=== PATIENT | female | born 1940 ===

== ENCOUNTER 2018-03-30 10:06 | Inpatient (IN) | payer MEDICARE, OTHER ==
[2018-03-30 10:07] VITALS: BMI 39.3
[2018-03-30] MEDS ORDERED: Dextrose 50% SYRINGE Inj (50 ml) IVP ONE (10:39)
--- NOTE | 2018-03-30 10:51 | ED PDOC ---
HPI: Altered Mental Status Time Seen by Provider: 03/30/18 10:15 Chief Complaint (Nursing): Altered Mental Status History Per: Family (This 77 yo female is brought to the ER after she was found by her homemaker confused at home. Per EMS she was on the floor rolling back and forth, giddy, when they arrived. Daughter at bedside later reports that she is usually self sufficient. She last saw her yesterday aroudn midday after she had lunch at the [facility]. ) Past Medical History Reviewed: Historical Data, Nursing Documentation, Vital Signs Vital Signs: Last Vital Signs Temp 97.1 F L 03/30/18 10:12 Pulse 81 03/30/18 10:12 Resp 21 03/30/18 10:12 BP 141/48 L 03/30/18 10:12 Pulse Ox 96 03/30/18 10:12 - Medical History PMH: Anxiety, Arthritis, Asthma (Inhaler), Depression, Diabetes, HTN, Hypercholesterolemia - Surgical History Surgical History: Denies: Pacemaker - Family History Family History: States: No Known Family Hx - Living Arrangements Living Arrangements: Alone - Home Medications Home Medications: Ambulatory Orders Medication Instructions Recorded ALPRAZolam [Xanax] 0.25 mg PO BID PRN 03/30/18 Amitriptyline HCl 25 mg PO DAILY 03/30/18 Atorvastatin [Lipitor] 40 mg PO HS 03/30/18 Donepezil HCl [Aricept] 10 mg PO DAILY 03/30/18 Fenofibrate 200 mg PO DAILY 03/30/18 Furosemide [Lasix] 20 mg PO DAILY 03/30/18 Glimepiride [amaRYL] 4 mg PO BID 03/30/18 Metoprolol Succinate [Toprol XL] 25 mg PO DAILY 03/30/18 Pioglitazone [Actos] 30 mg PO DAILY 03/30/18 Risperidone [Risperdal] 0.25 mg PO HS 03/30/18 Valsartan/Hydrochlorothiazide 1 tab PO DAILY 03/30/18 [Valsartan-Hctz 320-25 mg Tab] metFORMIN [glucOPHAGE] 1,000 mg PO BID 03/30/18 - Allergies Allergies/Adverse Reactions: Allergies Allergy/AdvReac Type Severity Reaction Status Date / Time cortisone AdvReac ill feeling Verified 05/04/17 10:03 Review of Systems Review Of Systems: ROS cannot be obtained secondary to pt's inabilty to answer questions. Physical Exam - Reviewed Nursing Documentation Reviewed: Yes Vital Signs Reviewed: Yes - Physical Exam Appears: Positive for: Well, Non-toxic, No Acute Distress Head Exam: Positive for: ATRAUMATIC, NORMAL INSPECTION, NORMOCEPHALIC Skin: Positive for: Normal Color, Warm, DRY Eye Exam: Positive for: Normal appearance, PERRL ENT: Positive for: Normal ENT Inspection Neck: Positive for: Normal, Painless ROM Cardiovascular/Chest: Positive for: Regular Rate, Rhythm Respiratory: Positive for: CNT, Normal Breath Sounds Gastrointestinal/Abdominal: Positive for: Normal Exam, Soft Back: Positive for: Normal Inspection Extremity: Positive for: Normal ROM Neurologic/Psych: Negative for: Oriented (patient is slow to respond but does not appear to have focal neurologic deficit.), Facial Droop - Laboratory Results Result Diagrams: 03/30/18 10:50 03/30/18 10:50 - ECG O2 Sat by Pulse Oximetry: 96 - Radiology X-Ray: Viewed By Mn X-Ray Interpretation: No Acute Disease - Progress Re-evaluation Time: 11:30 Condition: Improved - Critical Care Total Time (In Min): 30 Medical Decision Making Medical Decision Making: Patient because alert and oriented x 3 after D50 was given for accucheck of 20. 12:05p - patient continues to be alert and without distress. Labs reviewed. Case discussed with Dr. Porter. Will admit to obs-tele to monitor for recurrence , given that there is no clear reason why she had the episode. As per Dr. Porter , she has not had such episodes in the past. Disposition - Clinical Impression Clinical Impression: Hypoglycemia due to type 2 diabetes mellitus, Altered mental status - Patient ED Disposition Is Patient to be Admitted: Yes Doctor Will See Patient In The: Hospital - Disposition Disposition: Transfer of Care Disposition Time: 12:29 Condition: IMPROVED Forms: [employer] (Telugu) - Pt Status Changed To: Hospital Disposition Of: Observation - POA Present On Arrival: None
[2018-03-30 11:03] LABS: BASO % 0.3 % (0.0-2.0); EOS % 0.3 % (0.0-4.0); HEMOGLOBIN 9.7 g/dL (12.0-16.0); LYMPH # 1.5 K/uL (1.0-4.3); LYMPH % 21.2 % (20.0-40.0); MEAN CELL VOLUME 86.6 fl (81.0-99.0); MEAN CORPUSCULAR HEMOGLOBIN 27.7 pg (27.0-31.0); MEAN CORPUSCULAR HGB CONC 31.9 g/dL (33.0-37.0); MEAN PLATELET VOLUME 10.6 fl (7.2-11.7); MONO # 0.6 K/uL (0.0-0.8); MONO % 8.4 % (0.0-10.0); NEUT # 4.8 K/uL (1.8-7.0); NEUT % 69.8 % (50.0-75.0); NRBC % 0.2 % (0.0-0.0); RBC 3.49 Mil/uL (3.80-5.20); RED CELL DISTRIBUTION WIDTH 13.9 % (11.5-14.5); WHITE BLOOD COUNT 6.8 K/uL (4.8-10.8)
[2018-03-30 11:11] LABS: ALB/GLOB RATIO 1.1 (1.0-2.1); ALBUMIN 4.2 g/dL (3.5-5.0); ALT/SGPT 33 U/L (9-52); AST/SGOT 47 U/L (14-36); BLOOD UREA NITROGEN 32 mg/dl (7-17); CALCIUM 9.2 mg/dL (8.4-10.2); GFR AFRICAN-AMERICAN 44; GFR NON-AFRICAN AMERICAN 37; LIPASE 125 U/L (23-300)
--- NOTE | 2018-03-30 11:14 | RAD ---
PROCEDURE: CHEST RADIOGRAPH, 1 VIEW HISTORY: altered mental status COMPARISON: Chest radiograph dated 08/11/2008 FINDINGS: LUNGS: Clear. PLEURA: No pneumothorax or pleural fluid seen. CARDIOVASCULAR: No sclerotic aortic calcifications. Cardiomediastinal silhouette stably enlarged. OSSEOUS STRUCTURES: Unchanged. VISUALIZED UPPER ABDOMEN: Normal. OTHER FINDINGS: None. IMPRESSION: No active disease.
[2018-03-30] MEDS: Dextrose 5%/0.45% NS 1,000 ML IV SCH ×2 (11:16→21:26)
[2018-03-30 11:20] LABS: VENOUS BLOOD GAS BASE EXCESS 7.4 mmol/L (0.0-2.0); VENOUS BLOOD GAS PCO2 59 mmHg (40-60); VENOUS BLOOD GAS PO2 22 mm/Hg (30-55); VENOUS BLOOD PH 7.37 (7.32-7.43)
[2018-03-30 12:15] LABS: BENZODIAZEPINES, UR NEGATIVE (NEGATIVE)
[2018-03-30 12:17] LABS: BARBITURATES, UR NEGATIVE (NEGATIVE); OPIATES, UR NEGATIVE (NEGATIVE); PHENCYCLIDINE, UR NEGATIVE (NEGATIVE)
[2018-03-30] MEDS ORDERED: Pneumococcal 23-Valent Vaccine IM ONE (14:05)
[2018-03-30] MEDS: Metoprolol Succinate 25 mg XL Tab PO SCH (17:10)
--- NOTE | 2018-03-30 18:41 | CARD ---
APPROVED REPORT EKG Measurement Heart [id number] ID [id number] <Conclusion> Normal sinus rhythm with sinus arrhythmia Nonspecific ST abnormality Abnormal ECG
[2018-03-31] MEDS: Dextrose 5%/0.45% NS 1,000 ML IV SCH (07:00)
[2018-03-31] MEDS: Metoprolol Succinate 25 mg XL Tab PO SCH (09:02)
--- NOTE | 2018-03-31 11:14 | CP.PCM.CON ---
History of Present Illness - History of Present Illness History of Present Illness: Patient is a 77 year old female with PMH HTN, DM who was admitteed withhypoglycemia. The patient ws previously taking Diovan 320 mg daily, but was hypertensive. Toprol was added. The patient states she was at home when she became dizzy and lightheaded. She was found to be hypoglycemic. The patient was admitted for further management. Review of Systems - Constitutional Constitutional: absent: As Per HPI, Anorexia, Chills, Daytime Sleepiness, Excessive Sweating, Fatigue, Fever, Frequent Falls, Headache, Increased Appetite , Lethargy, Malaise, Night Sweats, Snoring, Sleep Apnea, Weight Gain, Weight Loss, Weakness, Other - EENT Eyes: absent: As Per HPI, Blind Spots, Blurred Vision, Change in Vision, Decreased Night Vision, Diplopia, Discharge, Dry Eye, Exophthalmos, Floaters, Irritation, Itchy Eyes, Loss of Peripheral Vision, Pain, Photophobia, Requires Corrective Lenses, Sees Flashes, Spots in Vision, Tunnel Vision, Other Visual Disturbances, Loss of Vision, Other Ears: absent: As Per HPI, Decreased Hearing, Ear Discharge, Ear Pain, Tinnitus, Abnormal Hearing, Disequilibrium, Dizziness, Other Nose/Mouth/Throat: absent: As Per HPI, Epistaxis, Nasal Congestion, Nasal Discharge, Nasal Obstruction, Nasal Trauma, Nose Pain, Post Nasal Drip, Sinus Pain, Sinus Pressure, Bleeding Gums, Change in Voice, Dental Pain, Dry Mouth, Dysphagia, Halitosis, Hoarsness, Lip Swelling, Mouth Lesions, Mouth Pain, Odynophagia, Sore Throat, Throat Swelling, Tongue Swelling, Facial Pain, Neck Pain, Neck Mass, Other - Breasts Breasts: absent: As Per HPI, Change in Shape, Mass, Pain, Nipple Discharge, Nipple Inversion, Skin Changes, Swelling, Other - Cardiovascular Cardiovascular: absent: As Per HPI, Acrocyanosis, Chest Pain, Chest Pain at Rest , Chest Pain with Activity, Claudication, Diaphoresis, Dyspnea, Dyspnea on Exertion, Edema, Irregular Heart Rhythm, Pain Radiating to Arm/Neck/Jaw, Leg Edema, Leg Ulcers, Lightheadedness, Orthopnea, Palpitations, Paroxysmal Nocturnal Dyspnea, Pedal Edema, Radiating Pain, Rapid Heart Rate, Slow Heart Rate, Syncope, Other - Respiratory Respiratory: absent: As Per HPI, Cough, Dyspnea, Hemoptysis, Dyspnea on Exertion , Wheezing, Snoring, Stridor, Pain on Inspiration, Chest Congestion, Excessive Mucous Production, Change in Mucous Color, Pain with Coughing, Other - Gastrointestinal Gastrointestinal: absent: As Per HPI, Abdominal Pain, Belching, Bloating, Change in Bowel Habits, Change in Stool Character, Coffee Ground Emesis, Constipation, Cramping, Diarrhea, Dyspepsia, Dysphagia, Early Satiety, Excessive Flatus, Fecal Incontinence, Heartburn, Hematemesis, Hematochezia, Loose Stools, Melena, Nausea, Odynophagia, Temesmus, Vomiting, Other - Genitourinary Genitourinary: absent: As Per HPI, Change in Urinary Stream, Difficulty Urinating, Dysuria, Flank Pain, Hematuria, Pyuria, Nocturia, Urinary Incontinence, Urinary Frequency, Urinary Hesitance, Urinary Urgency, Voiding Freq/Small Amts, Freq UTI, Hx Renal/Bladder Calculi, Hx /Renal Surgery, Bladder Distension, Other - Musculoskeletal Musculoskeletal: absent: As Per HPI, Abnormal Gait, Arthralgias, Atrophy, Back Pain, Deformity, Joint Swelling, Limited Range of Motion, Loss of Height, Muscle Cramps, Muscle Weakness, Myalgias, Neck Pain, Numbness, Radiating Pain into Limb, Stiffness, Tingling, Other - Integumentary Integumentary: absent: As Per HPI, Acne, Alopecia, Bleeding Lesions, Change in Hair, Change in Nails, Change in Pigmentation, Changing Lesions, Dry Skin, Erythema, Furuncle, Hirsutism, Lesions, New Lesions, Non-Healing Lesions, Photosensitivity, Pruritus, Rash, Skin Pain, Skin Ulcer, Sores, Striae, Swelling , Unusual Bruising, Wounds, Jaundice, Other - Neurological Neurological: absent: As Per HPI, Abnormal Gait, Abnormal Hearing, Abnormal Movements, Abnormal Speech, Behavioral Changes, Burning Sensations, Confusion, Convulsions, Disequilibrium, Dizziness, Numbness, Focal Weakness, Frequent Falls , Headaches, Lack of Coordination, Loss of Vision, Memory Loss, Paresthesias, Radicular Pain, Restless Legs, Sensory Deficit, Syncope, Tingling, Tremor, Vertigo, Weakness, Other Visual Disturbances, Other - Psychiatric Psychiatric: absent: As Per HPI, Abnormal Sleep Pattern, Anhedonia, Anxiety, Auditory Hallucinations, Behavioral Changes, Change in Appetite, Change in Libido, Confusion, Depression, Difficulty Concentrating, Hallucinations, Homicidal Ideation, Hopelessness, Irritability, Memory Loss, Mood Swings, Panic Attacks, Paranoia, Suicidal Ideation, Visual Hallucinations, Tactile Hallucinations, Other - Endocrine Endocrine: absent: As Per HPI, Change in Body Appearance, Change in Libido, Cold Intolorance, Deepening of Voice, Excessive Sweating, Fatigue, Flushing, Heat Intolorance, Increase in Ring/Shoe/Hat Size, Palpitations, Polydipsia, Polyphagia, Polyuria, Other - Hematologic/Lymphatic Hematologic: absent: As Per HPI, Easy Bleeding, Easy Bruising, Lymphadenopathy, Other Past Patient History - Past Medical History & Family History Past Medical History?: Yes - Past Social History Smoking Status: Never Smoked - CARDIAC Hx Cardiac Disorders: Yes - PULMONARY Hx Asthma: Yes (Inhaler) - NEUROLOGICAL Hx Paralysis: No - ENDOCRINE/METABOLIC Hx Diabetes Insipidus: Yes - HEMATOLOGICAL/ONCOLOGICAL Hx Blood Transfusions: No - MUSCULOSKELETAL/RHEUMATOLOGICAL Hx Musculoskeletal Disorders: Yes Hx Falls: No - PSYCHIATRIC Hx Anxiety: Yes Hx Depression: Yes Hx Substance Use: No - SURGICAL HISTORY Hx Surgeries: Yes - ANESTHESIA Hx Anesthesia Reactions: No Hx Malignant Hyperthermia: No Meds Allergies/Adverse Reactions: Allergies Allergy/AdvReac Type Severity Reaction Status Date / Time cortisone AdvReac ill feeling Verified 05/04/17 10:03 - Medications Medications: Current Medications Alprazolam (Xanax) 0.25 mg PO BID PRN PRN Reason: Anxiety Stop: 04/06/18 16:30 Last Admin: 03/31/18 01:02 Dose: 0.25 mg Amitriptyline HCl (Elavil) 25 mg PO DAILY [facility] Last Admin: 03/31/18 09:01 Dose: 25 mg Atorvastatin Calcium (Lipitor) 40 mg PO DAILY [facility] Last Admin: 03/31/18 09:01 Dose: 40 mg Donepezil HCl (Aricept) 10 mg PO DAILY [facility] Last Admin: 03/31/18 09:00 Dose: 10 mg Fenofibrate (Tricor) 145 mg PO DAILY [facility] Last Admin: 03/31/18 09:01 Dose: 145 mg Furosemide (Lasix) 20 mg PO DAILY [facility] Last Admin: 03/31/18 09:01 Dose: 20 mg Hydrochlorothiazide (Hydrodiuril) 25 mg PO DAILY [facility] Last Admin: 03/31/18 09:01 Dose: 25 mg Dextrose (Dextrose 5% In Water 1000 Ml) 1,000 mls @ 80 mls/hr IV .[id number] [facility] Stop: 03/31/18 16:23 Last Admin: 03/31/18 06:49 Dose: Not Given Dextrose (Dextrose 10% In Water) 1,000 mls @ 80 mls/hr IV .[id number] [facility] Stop: 03/31/18 22:42 Last Admin: 03/30/18 23:33 Dose: 80 mls/hr Metoprolol Succinate (Toprol Xl) 25 mg PO DAILY [facility] Last Admin: 03/31/18 09:02 Dose: 25 mg Valsartan (Diovan) 320 mg PO DAILY [facility] Last Admin: 03/31/18 09:10 Dose: Not Given Physical Exam - Constitutional Appears: Non-toxic - Head Exam Head Exam: NORMAL INSPECTION - Eye Exam Eye Exam: Normal appearance - ENT Exam ENT Exam: Mucous Membranes Moist - Neck Exam Neck exam: Positive for: Normal Inspection - Respiratory Exam Respiratory Exam: NORMAL BREATHING PATTERN - Cardiovascular Exam Cardiovascular Exam: REGULAR RHYTHM - GI/Abdominal Exam GI & Abdominal Exam: Normal Bowel Sounds - Rectal Exam Rectal Exam: Deferred - Extremities Exam Extremities exam: Positive for: pedal edema - Back Exam Back exam: NORMAL INSPECTION - Neurological Exam Neurological exam: Alert, Oriented x3 - Psychiatric Exam Psychiatric exam: Normal Affect - Skin Skin Exam: Normal Color Results - Vital Signs Recent Vital Signs: Last Vital Signs Temp 98.9 F 03/31/18 08:10 Pulse 75 03/31/18 09:02 Resp 18 03/31/18 08:10 BP 161/73 H 03/31/18 09:02 Pulse Ox 94 L 03/31/18 08:10 - Labs Result Diagrams: 03/30/18 10:50 03/30/18 10:50 Labs: Laboratory Results - last 24 hr 03/30/18 03/30/18 03/30/18 10:50 11:02 11:28 pO2 22 L VBG pH 7.37 VBG pCO2 59 VBG HCO3 29.4 VBG Total CO2 35.9 H VBG O2 Sat (Calc) 32.2 L VBG Base Excess 7.4 H VBG Potassium 5.3 H Glucose 144 H Lactate 0.7 FiO2 21.0 Sodium 142 137.0 Potassium 3.8 Chloride 97 L 102.0 Carbon Dioxide 30 Anion Gap 19 BUN 32 H Creatinine 1.4 H Est GFR ( Amer) 44 Est GFR (Non-Af Amer) 37 POC Glucose (mg/dL) 100 Random Glucose 26 L* Calcium 9.2 Total Bilirubin 0.3 AST 47 H ALT 33 Alkaline Phosphatase 45 Troponin I < 0.0120 Total Protein 8.3 H Albumin 4.2 Globulin 4.0 H Albumin/Globulin Ratio 1.1 Lipase 125 Venous Blood Potassium 5.3 H Urine Opiates Screen Urine Methadone Screen Ur Barbiturates Screen Ur Phencyclidine Scrn Ur Amphetamines Screen U Benzodiazepines Scrn U Oth Cocaine Metabols U Cannabinoids Screen Alcohol, Quantitative < 10 03/30/18 03/30/18 03/30/18 11:34 13:15 15:41 pO2 VBG pH VBG pCO2 VBG HCO3 VBG Total CO2 VBG O2 Sat (Calc) VBG Base Excess VBG Potassium Glucose Lactate FiO2 Sodium Potassium Chloride Carbon Dioxide Anion Gap BUN Creatinine Est GFR ( Amer) Est GFR (Non-Af Amer) POC Glucose (mg/dL) 81 35 L* Random Glucose Calcium Total Bilirubin AST ALT Alkaline Phosphatase Troponin I Total Protein Albumin Globulin Albumin/Globulin Ratio Lipase Venous Blood Potassium Urine Opiates Screen Negative Urine Methadone Screen Negative Ur Barbiturates Screen Negative Ur Phencyclidine Scrn Negative Ur Amphetamines Screen Negative U Benzodiazepines Scrn Negative U Oth Cocaine Metabols Negative U Cannabinoids Screen Negative Alcohol, Quantitative 03/30/18 03/30/18 03/30/18 18:08 20:08 20:31 pO2 VBG pH VBG pCO2 VBG HCO3 VBG Total CO2 VBG O2 Sat (Calc) VBG Base Excess VBG Potassium Glucose Lactate FiO2 Sodium Potassium Chloride Carbon Dioxide Anion Gap BUN Creatinine Est GFR ( Amer) Est GFR (Non-Af Amer) POC Glucose (mg/dL) 71 60 L 54 L Random Glucose Calcium Total Bilirubin AST ALT Alkaline Phosphatase Troponin I Total Protein Albumin Globulin Albumin/Globulin Ratio Lipase Venous Blood Potassium Urine Opiates Screen Urine Methadone Screen Ur Barbiturates Screen Ur Phencyclidine Scrn Ur Amphetamines Screen U Benzodiazepines Scrn U Oth Cocaine Metabols U Cannabinoids Screen Alcohol, Quantitative 03/30/18 03/31/18 03/31/18 22:08 01:57 05:19 pO2 VBG pH VBG pCO2 VBG HCO3 VBG Total CO2 VBG O2 Sat (Calc) VBG Base Excess VBG Potassium Glucose Lactate FiO2 Sodium Potassium Chloride Carbon Dioxide Anion Gap BUN Creatinine Est GFR ( Amer) Est GFR (Non-Af Amer) POC Glucose (mg/dL) 50 L 61 L 153 H Random Glucose Calcium Total Bilirubin AST ALT Alkaline Phosphatase Troponin I Total Protein Albumin Globulin Albumin/Globulin Ratio Lipase Venous Blood Potassium Urine Opiates Screen Urine Methadone Screen Ur Barbiturates Screen Ur Phencyclidine Scrn Ur Amphetamines Screen U Benzodiazepines Scrn U Oth Cocaine Metabols U Cannabinoids Screen Alcohol, Quantitative - EKG Data EKG Interpreted by: Myself EKG shows normal: Sinus rhythm Assessment & Plan (1) HTN (hypertension) Assessment and Plan: I discussed with patient htat the combination of Diovan and Toprol does not cause hypoglycemia. recommend medical therapy and blood pressure control Status: Acute (2) Hypoglycemia due to type 2 diabetes mellitus Status: Acute
--- NOTE | 2018-03-31 14:54 | HP ---
HISTORY OF PRESENT ILLNESS: The patient was seen in Emergency Room. The patient was brought to Emergency Room. This is a 77-year-old female with history of multiple medical problems who was brought to Emergency Room after her homemaker found her in the floor unconscious. The patient was found to have blood sugar of 26. The patient was given D50 and brought to Emergency Room by ambulance.: In the Emergency Room, blood sugar was continued to be low in spite of D5 and D50 were given to her. The patient was admitted for further management. The patient does not recall that she overdosing her antihyperglycemic medications neither she has changed her diet habit. As the patient was interrogated further, she recalled that she did not eat as usual on the night before. The patient lives by her self and administered medications by herself to. REVIEW OF SYSTEMS: Other review of systems is negative. ALLERGIES: Treatment for cortisone medications as per MAR. SOCIAL HISTORY: No history of smoking, EtOH or substance abuse. FAMILY HISTORY: Noncontributory. PAST MEDICAL HISTORY: Hypertension, type 2 diabetes mellitus, and osteoarthritis. PHYSICAL EXAMINATION: GENERAL: The patient is in bed, not in any cardiopulmonary distress. VITAL SIGNS: With blood pressure of 136/78, temperature of 97.8, respiratory rate of 19 and pulse of 78. HEENT: Pupils are equal and reactive to light. Normal appearing mucosa of the conjunctivae, oropharynx and nasal membrane mucosa. NECK: Supple. No JVD. No carotid bruit. No lymph node. No thyromegaly. CHEST AND LUNGS: Bilateral symmetrical expansion. Good air exchange. No rales and no rhonchi. CARDIOVASCULAR SYSTEM: PMI not localized. S1 and S2. No additional sounds. ABDOMEN: Normoactive bowel sounds. No tenderness. No organomegaly. No masses. EXTREMITIES: No cyanosis, no clubbing, and no edema. CENTRAL NERVOUS SYSTEM: Alert, awake, and oriented x2. No neurological deficit could be appreciated. ASSESSMENT: 1. Persistent hypoglycemia likely secondary to missing meals while taking her antihyperglycemic medications. 2. History of type 2 diabetes mellitus. 3. Hypertension. 4. Osteoarthritis. PLAN: We will start the patient on D5 and frequent Accu-Cheks every 2 hours and resume the patient's home medications and once blood sugar is above 180, we will start sliding scale. [facility] MD [facility] # [id number]
[2018-03-31] MEDS: Insulin Regular 100 units/ml SC SCH ×2 (17:29→17:32)
--- NOTE | 2018-03-31 20:55 | PN ---
DAILY PROGRESS NOTE DATE: 03/31/2018 SUBJECTIVE: The patient is seen today, 03/31/2018. She is not in any cardiopulmonary distress. The patient's blood sugar went up to 300 and D10 was discontinued. PHYSICAL EXAMINATION VITAL SIGNS: Blood pressure 172/64, temperature 98.8, respiratory rate 18, and pulse 70. HEENT: Pupils are equal and reactive to light. Normal appearing mucosa of the conjunctivae, oropharyngeal and nasal membrane mucosa. NECK: Supple. No JVD. No carotid bruit. No lymph node. No thyromegaly. CHEST AND LUNGS: Bilateral symmetrical expansion. Good air exchange. No rales. No rhonchi. CARDIOVASCULAR: PMI not localized, S1 and S2. No additional sounds. ABDOMEN: Normoactive bowel sounds. No tenderness. No organomegaly. No masses. EXTREMITIES: No cyanosis. No clubbing. No edema. CENTRAL NERVOUS SYSTEM: Alert, awake, oriented x2. No neurological deficits could be appreciated. ASSESSMENT: 1. Hypoglycemia of uncertain etiology. 2. Type 2 diabetes mellitus. 3. Hypertension, uncontrolled. 4. Osteoarthritis. PLAN: We will discontinue the D10 and continue Accu-Cheks with low dose insulin coverage and as the patient's blood sugar will be coming back to his baseline, we will resume the patient's antihyperglycemic medications. Micheal Porter MD
[2018-04-01] MEDS: Metoprolol Succinate 25 mg XL Tab PO SCH (09:29)
--- NOTE | 2018-04-01 23:00 | PN ---
DAILY PROGRESS NOTE DATE: 04/01/2018 SUBJECTIVE: The patient is seen today 04/01/2018. She is not in any cardiopulmonary distress. PHYSICAL EXAMINATION: VITAL SIGNS: Blood pressure 144/76, temperature 98.7, respiratory rate 18, and pulse 73. HEENT: Pupils are equal and reactive to light. Normal appearing mucosa of the conjunctivae, oropharynx, and nasal membrane mucosa. NECK: Supple. No JVD. No carotid bruit. No lymph node. No thyromegaly. CHEST AND LUNGS: Bilaterally symmetrical expansion. Good air exchange. No rales. No rhonchi. CARDIOVASCULAR: PMI not localized. S1 and S2. No additional sounds. ABDOMEN: Normoactive bowel sounds. No tenderness. No organomegaly. No masses. EXTREMITIES: No cyanosis. No clubbing. No edema. CENTRAL NERVOUS SYSTEM: Alert, awake, and oriented x2. No neurological deficit could be appreciated. ASSESSMENT: 1. Persistent hypoglycemia. 2. Hypertension. 3. Type 2 diabetes mellitus. PLAN: We will her blood sugar medications gradually. The patient does not want to take any insulin coverage for a sliding scale. If the patient's blood sugar remains stable in the morning, we will discharge her home. Micheal Porter MD
[2018-04-02] MEDS: Metoprolol Succinate 25 mg XL Tab PO SCH (09:00)
[2018-04-02 12:16] VITALS: PULSE 73
[2018-04-02 16:21] VITALS: BP 107/66; RESP 17; TEMP 98.7; O2SAT 93
--- NOTE | 2018-04-02 20:51 | DS ---
REASON FOR ADMISSION: This is a 77-year-old female with history of multiple medical problems who was admitted hypoglycemic coma. COURSE OF HOSPITALIZATION: The patient was admitted to telemetry floor and she was started on D5 that was switched later on to D10. Eventually, the patient came out of the hypoglycemia and she was started on Accu-Cheks. The patient's medications were resumed, antihyperglycemic medications were resumed, and the patient was discharged home and advised to take half of the doses that she was taking prior to this admission. The patient also was advised to start monitor her blood sugar and follow with Dr. Porter in one week. FINAL DIAGNOSES: Hypoglycemic coma, hypertension, type 2 diabetes mellitus, and osteoarthritis. [facility] MD [place]
== END 2018-04-02 17:25 | disposition home health service (06) | DRG 639 ==
LOC: H.ER 10:06 → H.ERHOLD 12:24 → H.TEL 13:43 → OBSVTOIN 03-31 17:50
PROVIDERS: ADMIT Internal Medicine; ATTEND Internal Medicine
PROC: 3E0234Z Introduction of Serum, Toxoid and Vaccine into Muscle, Percutaneous Approach (ICD-10-PCS; principal; 2018-03-30)
DX: E11.641 Type 2 diabetes mellitus with hypoglycemia with coma (principal); E11.65 Type 2 diabetes mellitus with hyperglycemia; Z79.4 Long term (current) use of insulin; Z79.84 Long term (current) use of oral hypoglycemic drugs; I10 Essential (primary) hypertension; E78.00 Pure hypercholesterolemia, unspecified; J45.909 Unspecified asthma, uncomplicated; M19.90 Unspecified osteoarthritis, unspecified site; F41.9 Anxiety disorder, unspecified; Z23 Encounter for immunization; Z88.8 Allergy status to other drugs, medicaments and biological substances

== ENCOUNTER 2018-09-16 20:35 | Emergency (ER) | payer MEDICARE, OTHER ==
[2018-09-16 20:36] VITALS: BMI 39.3
[2018-09-16 20:50] VITALS: RESP 18; TEMP 98.8; O2SAT 99
--- NOTE | 2018-09-17 00:05 | ED PDOC ---
HPI: General Adult Time Seen by Provider: 09/16/18 20:59 Chief Complaint (Nursing): Trauma Chief Complaint (Provider): fall/back pain History Per: Patient (77 y/o female here with lower back pain after fall 2 days ago. Notes ongoing left leg numbness prior to injury. No new weakness.) Past Medical History Reviewed: Historical Data, Nursing Documentation, Vital Signs Vital Signs: Last Vital Signs Temp 98.8 F 09/16/18 20:47 Pulse 88 09/16/18 20:47 Resp 18 09/16/18 20:47 BP 150/60 09/16/18 20:47 Pulse Ox 99 09/16/18 20:47 - Medical History PMH: Anxiety, Arthritis, Asthma (Inhaler), Depression, Diabetes, HTN, Hypercholesterolemia - Surgical History Surgical History: Denies: Pacemaker - Family History Family History: States: No Known Family Hx - Home Medications Home Medications: Ambulatory Orders Medication Instructions Recorded RX: ALPRAZolam [Xanax] 0.25 mg PO BID PRN 03/30/18 RX: Amitriptyline HCl 25 mg PO DAILY 03/30/18 RX: Atorvastatin [Lipitor] 40 mg PO HS 03/30/18 RX: Donepezil HCl [Aricept] 10 mg PO DAILY 03/30/18 RX: Fenofibrate 200 mg PO DAILY 03/30/18 RX: Furosemide [Lasix] 20 mg PO DAILY 03/30/18 RX: Glimepiride [amaRYL] 4 mg PO BID 03/30/18 RX: Metoprolol Succinate XL 25 mg PO DAILY 03/30/18 [Toprol XL] RX: Risperidone [Risperdal] 0.25 mg PO HS 03/30/18 RX: Valsartan/Hydrochlorothiazide 1 tab PO DAILY 03/30/18 [Valsartan-Hctz 320-25 mg Tab] Glimepiride [amaRYL] 2 mg PO BID #60 tab 04/02/18 Pioglitazone HCl [Actos] 15 mg PO DAILY #30 tablet 04/02/18 RX: metFORMIN [glucOPHAGE] 500 mg PO BID #60 tab 04/02/18 Acetaminophen with Codeine 1 each PO Q4 PRN #20 tablet 09/17/18 [Tylenol with Codeine #3 Tablet] Docusate Sodium [Colace] 100 mg PO BID #14 capsule 09/17/18 Lidocaine [Lidocaine Pain Relief] 1 each TP Q8 PRN #15 adh..patch 09/17/18 - Allergies Allergies/Adverse Reactions: Allergies Allergy/AdvReac Type Severity Reaction Status Date / Time cortisone AdvReac ill feeling Verified 05/04/17 10:03 Insulins AdvReac RASH Verified 03/31/18 18:42 Review of Systems ROS Statement: Except As Marked, All Systems Reviewed And Found Negative Physical Exam - Reviewed Nursing Documentation Reviewed: Yes Vital Signs Reviewed: Yes - Physical Exam Appears: Positive for: Well, Non-toxic, No Acute Distress Head Exam: Positive for: ATRAUMATIC, NORMAL INSPECTION, NORMOCEPHALIC Skin: Positive for: Normal Color, Warm, DRY Eye Exam: Positive for: EOMI, Normal appearance, PERRL ENT: Positive for: Normal ENT Inspection Neck: Positive for: Normal, Painless ROM Cardiovascular/Chest: Positive for: Regular Rate, Rhythm Respiratory: Positive for: CNT, Normal Breath Sounds Gastrointestinal/Abdominal: Positive for: Normal Exam, Soft Back: Positive for: Normal Inspection Extremity: Positive for: Normal ROM Neurologic/Psych: Positive for: Alert, Oriented - ECG O2 Sat by Pulse Oximetry: 99 - Progress ED Course And Treament: TORADOL 30 MG IM VALIUM 2 MG X 1 DOSE XRY OF L SPINE: ? COMPRESSION FX XRY OF COCCYX/ SACRUM: NO ACUTE FX XRY OF PELVIC: NO ACUTE FX CT OF L SPINE OBTAINED. FINDINGS D/W DR. CRISTINA. FX STABLE AND NO INTERVENTION NEEDED. D/W DR. RITCHIE. REQUESTS TYLENOL #3 RX /LIDOCAINE PATCH FOR PATIENT Medical Decision Making Medical Decision Making: Initial Plan: --Lumbar Spine [CT] --Toradol 30 mg IM --Valium 2 mg PO --L Spine AP & LAT < 18 yrs old [RAD] --Pelvis one view [RAD] --Sacrum &/or Coccyx (Min 2vw) [RAD] 00:[address] Findings: The lumbar vertebral bodies are in satisfactory positioning and alignment. There is a mild acute compression fracture L1 with mild loss of vertebral body height. No displaced osseous fragments are seen. There is an acute nondisplaced fracture of the left transverse process of L2. Intervertebral disc spaces are mildly narrowed at L2/L3 and L4/L5. There is a small disc osteophyte complex at L4/L5. There is no evidence of facet subluxation. The neural foramen appear grossly patent. The spinal canal demonstrates normal caliber and contour without evidence of spinal stenosis. The surrounding soft tissues are within normal limits. Impression: 1. Acute compression fracture of L1 with mild loss of vertebral body height. No displaced osseous fragments are seen. 2. Acute nondisplaced fracture of the left transverse processes of L2. 3. Mild degenerative disc disease at L2/L3 and L4/L5. Disposition - Clinical Impression Clinical Impression: Compression fracture of lumbar vertebra, Fracture of transverse process of lumb ar vertebra - Patient ED Disposition Is Patient to be Admitted: No - Disposition Referrals: Matthew Cristina MD [Staff Provider] - Disposition: Routine/Home Disposition Time: 00:11 Condition: FAIR Prescriptions: Acetaminophen with Codeine [Tylenol with Codeine #3 Tablet] 1 each PO Q4 PRN #20 tablet PRN Reason: Pain, Moderate (4-7) Docusate Sodium [Colace] 100 mg PO BID #14 capsule Lidocaine [Lidocaine Pain Relief] 1 each TP Q8 PRN #15 adh..patch PRN Reason: Pain, Moderate (4-7) Instructions: Vertebral Compression Fracture (DC) Print Language: FAROESE
[2018-09-17 00:49] VITALS: BP 156/63; PULSE 78
--- NOTE | 2018-09-17 08:27 | RAD ---
Date of service: 09/16/2018 PROCEDURE: Radiographs of the Sacrum and Coccyx HISTORY: LOWER BACK PAIN COMPARISON: None available. TECHNIQUE: Frontal and lateral views of the sacrum and coccyx FINDINGS: BONES: Sacrum and coccyx unremarkable. No fracture or focal lesion. SACROILIAC JOINTS: Moderate degenerative changes seen at the bilateral sacroiliac joints without distraction. OTHER FINDINGS: None. IMPRESSION: Degenerative bilateral sacroiliac joint changes. No acute fracture or destructive bony lesion involving the sacrum or coccyx grossly.
--- NOTE | 2018-09-17 08:28 | RAD ---
Date of service: 09/16/2018 PROCEDURE: Radiographs of the pelvis. HISTORY: LOWER BACK PAIN COMPARISON: None. FINDINGS: BONES: Pelvic Bones: Pelvic ring appears intact without fracture or destructive bony lesion identified. Hips: No subluxation or dislocation identified bilaterally. No fracture identified. JOINTS: Sacroiliac Joints: Moderate degenerative changes are seen the bilateral sacroiliac and hip joints Pubic Symphysis: Intact. OTHER FINDINGS: None. IMPRESSION: Moderate degenerative changes are seen at the bilateral hip and sacroiliac joints without acute fracture or dislocation identified.
--- NOTE | 2018-09-17 08:44 | RAD ---
Date of service: 09/16/2018 PROCEDURE: Radiographs of the Lumbar Spine. HISTORY: BACK PAIN COMPARISON: No prior. FINDINGS: BONES: There is a moderate anterior wedge compression fracture of L1 with straightening of lumbar curvature. DISC SPACES: No spondylolisthesis appreciable. Multilevel spondylosis appreciated predominate the mid inferior lumbar levels with vacuum disc change identified L4-5 indicating relatively advanced degenerative disease here. OTHER FINDINGS: Nonaneurysmal abdominal aortic calcific atherosclerotic changes are identified. IMPRESSION: Moderate anterior wedge compression fracture of L1, indeterminate in age. Multilevel degenerative disc disease is of variable severity. No spondylolisthesis.
--- NOTE | 2018-09-17 10:40 | CT ---
Date of service: 09/16/2018 PROCEDURE: CT Lumbar Spine without contrast HISTORY: r/o fracture L1 COMPARISON: None available. TECHNIQUE: Axial computed tomography images were obtained of the lumbar spine without the use of intravenous contrast. Coronal and sagittal reformatted images were created and reviewed. Radiation dose: Total exam DLP = 1353.42 mGy-cm. This CT exam was performed using one or more of the following dose reduction techniques: Automated exposure control, adjustment of the mA and/or kV according to patient size, and/or use of iterative reconstruction technique. FINDINGS: VERTEBRAE: Limited straightening of the lumbar curvature is appreciated and there is a mild to moderate anterior wedge compression fracture of L1 is appreciated with limited posterior retropulsed component identified towards the right and none on the left. No spondylolisthesis. Emphysematous change are seen deep to the endplate at the right side of the L1 vertebral body superior endplate however limited paraspinal and prevertebral soft tissue edema is appreciate which may indicate an acute subacute timeframe. Clinically correlate further. Acute fracture of the left L2 transverse process is identified, nondisplaced. No additional fracture appreciated. Multilevel facet joint degenerative changes are identified diffusely and occasional vacuum disc changes are identified involving L2-3 and L4-5 intervertebral discs and minimally affecting L3-4 and T12-L1 intervertebral discs. DISCS/SPINAL CANAL/NEURAL FORAMINA: T12-L1: Borderline generalized central canal stenosis appreciated diffusely at T12-L1 due to aforementioned L1 vertebral body compression fracture with limited retropulsion of the right side endplate more so than left. L1-2: Limited disc osteophyte complex partially flattens the ventral thecal sac without causing significant central canal stenosis. No neural foraminal stenosis identified bilaterally. L2-3: Mild generalized disc bulging is identified causing borderline central canal stenosis, concentrated at the lateral recesses symmetrically. No significant neural foraminal stenosis bilaterally. L3-4: Minimal generalized disc bulge without significant central canal stenosis resulting. No significant neural foraminal stenosis bilaterally. L4-5: Differential disc osteophyte complex is appreciated causing mild central canal stenosis, concentrated at the lateral recesses symmetrically with borderline bilateral neural foraminal stenoses present symmetrically. L5-S1: Minimal circumferential disc osteophyte complex identified without stenosis of the central canal or neural foramina bilaterally. No disc herniation throughout the examination however MRI is more sensitive in evaluation of intervertebral disc soft tissue. PARASPINAL SOFT TISSUES: Unremarkable. OTHER FINDINGS: None. IMPRESSION: 1. Anterior wedge L1 compression fracture again identified with limited retropulsion of posterior endplate margins resulting in a borderline central canal stenosis greater the right than left vijaya canal. Edematous changes are identified deep to the endplate. Given limited prevertebral paraspinal edema, subacute or acute timeframe is questioned. Clinically correlate further. MRI or bone scan can more accurately assessed for timeframe of fracture. 2. Nondisplaced left L2 transverse process fracture. 3. No large disc herniation or severe central canal stenosis appreciable. Degenerative spondylosis and circumferential disc bulging is identified at multiple levels, seen worst at L4-5 where mild central canal stenosis is identified. Concordant preliminary report from [facility], 09/17/2018.
== END 2018-09-17 00:47 | disposition home or self-care (01) ==
LOC: H.ER 20:35
DX: S32.009A Unspecified fracture of unspecified lumbar vertebra, initial encounter for closed fracture (principal); W19.XXXA Unspecified fall, initial encounter; Y92.89 Other specified places as the place of occurrence of the external cause; E11.9 Type 2 diabetes mellitus without complications; E78.00 Pure hypercholesterolemia, unspecified; J45.909 Unspecified asthma, uncomplicated; Z79.84 Long term (current) use of oral hypoglycemic drugs
CPT/HCPCS: 72100; 72131; 72170; 72220; 96372; 99285; J1885

== ENCOUNTER 2018-09-19 22:05 | Inpatient (IN) | payer MEDICARE, OTHER ==
[2018-09-19 22:05] VITALS: BMI 39.3
--- NOTE | 2018-09-19 22:50 | ED PDOC ---
HPI: Back Time Seen by Provider: 09/19/18 22:36 Chief Complaint (Nursing): Back Pain Chief Complaint (Provider): back pain History Per: Patient, Family History/Exam Limitations: no limitations Onset/Duration Of Symptoms: Days (5) Current Symptoms Are (Timing): Still Present Exacerbating Factor(s): Turning, Movement, Sitting, Standing Additional Complaint(s): 77 y/o female brought in by family for evaluation of low back pain x 5 days. Patient states she slipped and fell at home, was evaluated here 2 days later and diagnosed with fractures of the lumbar spine and sent home with Tylenol #3. Patient reports little to no relief with medication; was evaluated by her PMD Dr. Porter today and sent to ED for further evaluation. Patient denies numbness/weakness lower extremities, bowel/bladder incontinence, urinary symptoms. Patient also reports constipation since starting the pain medication. Denies vomiting, rectal pain. Past Medical History Reviewed: Historical Data, Nursing Documentation, Vital Signs Vital Signs: Last Vital Signs Temp 99.9 F H 09/19/18 22:22 Pulse 74 09/19/18 22:22 Resp 16 09/19/18 22:22 BP 166/79 H 09/19/18 22:22 Pulse Ox 96 09/19/18 22:22 - Medical History PMH: Anxiety, Arthritis, Asthma (Inhaler), Depression, Diabetes, HTN, Hypercholesterolemia - Surgical History Surgical History: Denies: Pacemaker - Family History Family History: States: No Known Family Hx - Home Medications Home Medications: Ambulatory Orders Medication Instructions Recorded ALPRAZolam [Xanax] 0.25 mg PO BID PRN 03/30/18 Amitriptyline HCl 50 mg PO BID 03/30/18 Atorvastatin [Lipitor] 40 mg PO HS 03/30/18 Fenofibrate 200 mg PO DAILY 03/30/18 Furosemide [Lasix] 20 mg PO DAILY 03/30/18 Metoprolol Succinate XL [Toprol XL] 25 mg PO DAILY 03/30/18 metFORMIN [glucOPHAGE] 500 mg PO BID #60 tab 04/02/18 Aspirin [Aspirin Chewable] 81 mg PO DAILY 09/20/18 Ferrous Fumarate [Demetris-Sequel] 09/20/18 HCTZ/Losartan Potassium [Hyzaar 09/20/18 12.5 mg-50 mg] Pioglitazone HCl [Actos] 30 mg PO DAILY 09/20/18 traMADol [Ultram] 50 mg PO DAILY 09/20/18 - Allergies Allergies/Adverse Reactions: Allergies Allergy/AdvReac Type Severity Reaction Status Date / Time cortisone AdvReac ill feeling Verified 09/19/18 22:20 Insulins AdvReac RASH Verified 09/19/18 22:20 Review of Systems ROS Statement: Except As Marked, All Systems Reviewed And Found Negative Musculoskeletal: Positive for: Back Pain Physical Exam - Reviewed Nursing Documentation Reviewed: Yes Vital Signs Reviewed: Yes - Physical Exam Appears: Positive for: Well, Non-toxic, Uncomfortable Head Exam: Positive for: ATRAUMATIC, NORMAL INSPECTION, NORMOCEPHALIC Skin: Positive for: Normal Color Eye Exam: Positive for: Normal appearance ENT: Positive for: Normal ENT Inspection Cardiovascular/Chest: Positive for: Regular Rate, Rhythm Respiratory: Positive for: Normal Breath Sounds Gastrointestinal/Abdominal: Positive for: Bowel Sounds, Soft, Distended. Negative for: Tenderness Back: Positive for: Vertebral Tenderness (lspine tenderness without skin deformity, edema), Decreased ROM (secondary to pain ), Muscle Spasm (b/l lspine paravertebral tenderness). Negative for: L CVA Tenderness, R CVA Tenderness Extremity: Positive for: Normal ROM Neurologic/Psych: Positive for: Alert, Oriented (x3) - Laboratory Results Result Diagrams: 09/19/18 22:55 09/19/18 22:55 - ECG ECG: Positive for: Viewed By Me (reviewed by ED attending) ECG Rhythm: Positive for: Sinus Rhythm, Nonspecific Changes O2 Sat by Pulse Oximetry: 96 Pulse Ox Interpretation: Normal - Radiology X-Ray: Viewed By Me X-Ray Interpretation: No Acute Disease - Progress ED Course And Treament: labs, ekg, xray, IV morphine, PO senna Case discussed with Dr. Porter, recommends admission for pain control Disposition - Clinical Impression Clinical Impression: Fracture of transverse process of lumbar vertebra, Compression fracture of lumbar vertebra, Intractable back pain - Patient ED Disposition Is Patient to be Admitted: Yes - Disposition Disposition Time: 23:30 Condition: FAIR - POA Present On Arrival: Falls Or Trauma
[2018-09-19] MEDS ORDERED: Docusate-Senna 50 mg-8.6 mg Tab PO STA (23:15)
[2018-09-19 23:24] LABS: BASO % 0.7 % (0.0-2.0); EOS # 0.2 K/uL (0.0-0.7); EOS % 2.2 % (0.0-4.0); HEMOGLOBIN 9.3 g/dL (12.0-16.0); LYMPH # 1.7 K/uL (1.0-4.3); LYMPH % 24.8 % (20.0-40.0); MEAN CELL VOLUME 87.8 fl (81.0-99.0); MEAN CORPUSCULAR HGB CONC 31.9 g/dL (33.0-37.0); MEAN PLATELET VOLUME 10.4 fl (7.2-11.7); MONO # 0.6 K/uL (0.0-0.8); MONO % 8.6 % (0.0-10.0); NEUT # 4.4 K/uL (1.8-7.0); NEUT % 63.7 % (50.0-75.0); NRBC % 0.1 % (0.0-0.0); RBC 3.3 Mil/uL (3.80-5.20); RED CELL DISTRIBUTION WIDTH 14.1 % (11.5-14.5); WHITE BLOOD COUNT 6.9 K/uL (4.8-10.8)
[2018-09-19 23:57] LABS: ALB/GLOB RATIO 0.9 (1.0-2.1); ALBUMIN 3.8 g/dL (3.5-5.0); CALCIUM 9.3 mg/dL (8.4-10.2)
--- NOTE | 2018-09-20 07:11 | CARD ---
APPROVED REPORT Date of service: 09/19/2018 EKG Measurement Heart [id number] <Conclusion> Normal sinus rhythm Normal Electrocardiogram
--- NOTE | 2018-09-20 08:43 | RAD ---
Date of service: 09/19/2018 HISTORY: admit COMPARISON: Portable chest 03/30/2018. FINDINGS: There is technical underpenetration. LUNGS: No interval active pulmonary disease. PLEURA: No significant pleural effusion identified, no pneumothorax apparent. CARDIOVASCULAR: No aortic atherosclerotic calcification present. Mild cardiomegaly unchanged. No definite pulmonary vascular congestion appreciated. OSSEOUS STRUCTURES: No significant abnormalities. VISUALIZED UPPER ABDOMEN: Normal. OTHER FINDINGS: None. IMPRESSION: Stable mild cardiomegaly. No infiltrate or pulmonary vascular congestion appreciated.
[2018-09-20] MEDS ORDERED: Dextrose 50% SYRINGE Inj (50 ml) IV PRN (10:11)
[2018-09-20] MEDS ORDERED: Glucagon Recombinant 1 mg Inj IM PRN (10:11)
[2018-09-20] MEDS ORDERED: Insulin Lispro (humaLOG) 100 Units/ml Inj SC SCH (11:30)
[2018-09-20] MEDS: Enoxaparin 30 mg Syringe SC SCH (11:31)
[2018-09-20] MEDS: Lidocaine 5% Patch TD SCH (11:32)
--- NOTE | 2018-09-20 11:56 | CP.PCM.PN ---
Subjective - Date & Time of Evaluation Date of Evaluation: 09/20/18 Time of Evaluation: 11:56 - Subjective Subjective: full consult dicated no intervention indicated Objective - Vital Signs/Intake and Output Vital Signs (last 24 hours): Temp Pulse Resp BP Pulse Ox 98.8 F 78 16 160/72 H 94 L 09/20/18 07:44 09/20/18 07:44 09/20/18 07:44 09/20/18 07:44 09/20/18 07:44 - Medications Medications: Current Medications Acetaminophen (Tylenol 325mg Tab) 650 mg PO Q4 PRN PRN Reason: Pain, moderate (4-7) Alprazolam (Xanax) 0.25 mg PO Q12 PRN PRN Reason: Anxiety Stop: 09/27/18 11:08 Amitriptyline HCl (Elavil) 50 mg PO Q12 [facility] Aspirin (Aspirin Chewable) 81 mg PO DAILY [facility] Atorvastatin Calcium (Lipitor) 40 mg PO HS [facility] Docusate Sodium (Colace) 100 mg PO Q12 [facility] Donepezil HCl (Aricept) 10 mg PO DAILY NO Enoxaparin Sodium (Lovenox) 30 mg SC DAILY [facility]; Protocol Last Admin: 09/20/18 11:31 Dose: 30 mg Fenofibrate (Tricor) 145 mg PO DAILY NO Furosemide (Lasix) 20 mg PO DAILY [facility] Glipizide (Glucotrol Xl) 10 mg PO BID [facility] HCTZ/Losartan Potassium (Hyzaar 12.5 Mg-50 Mg) 2 tab PO DAILY [facility] Ketorolac Tromethamine (Toradol) 30 mg IVP Q6 PRN PRN Reason: Pain, severe (8-10) Lidocaine (Lidoderm) 1 ea TD DAILY [facility] Last Admin: 09/20/18 11:32 Dose: 1 ea Metformin HCl (Glucophage) 500 mg PO BID [facility] Metoprolol Succinate (Toprol Xl) 25 mg PO DAILY NO Pioglitazone HCl (Actos) 30 mg PO DAILY [facility] - Labs Labs: 09/19/18 22:55 09/19/18 22:55
[2018-09-20] MEDS: HCTZ/Losartan 12.5/50 Tab PO SCH (12:59)
[2018-09-20] MEDS: Metoprolol Succinate 25 mg XL Tab PO SCH (13:03)
[2018-09-20] MEDS: GlipiZIDE 10 mg SR Tab PO SCH (19:07)
[2018-09-20] MEDS: Ferrous fumarate/Vit C 65-25 MG TABLET.ER PO SCH (20:32)
[2018-09-20] MEDS ORDERED: Metoprolol 1 mg/ml Inj IVP ONE (22:02)
--- NOTE | 2018-09-21 08:34 | CON ---
DATE: 09/20/2018 HISTORY OF PRESENT ILLNESS: This is a 77-year-old female who came to the hospital approximately 5 days ago for lower back pain. She slipped and fell at home. She had an x-ray showing a minimal superior endplate fracture of, I believe, L1. She was sent home with analgesics. She reports that she has no relief of pain. She was seen by her PMD and sent to the emergency room. She is denying any numbness, weakness or paresthesias in her lower extremities. PAST MEDICAL HISTORY: Significant for anxiety, arthritis, asthma, depression, diabetes, hypertension and high cholesterol. She has a pacemaker. MEDICATIONS: Listed on the hospital chart. REVIEW OF SYSTEMS: Documented and reviewed from the hospital chart. PHYSICAL EXAMINATION: MUSCULOSKELETAL: She has mild tenderness to palpation over the upper lumbar spine. She has good strength with no sensory deficits, and reflexes are all 0/4. I did not ambulate her. She is very obese. ASSESSMENT AND PLAN: At this point, there is really no surgical intervention indicated. She will have low back pain for quite a while and this should self-remit. I would expect that she will need to continue the analgesics for a while. Normally, the patient would be braced; however, given her habitus, a brace would be only more uncomfortable for her and I do think that would be counterproductive. Again, there is no intervention from my part at this time, conservative measures and analgesics. From my point of view, admission would be based on other medical issues. If you have any questions, do not hesitate contact me. Matthew Varma MD
--- NOTE | 2018-09-21 08:50 | HP ---
HISTORY OF PRESENT ILLNESS: The patient is a 77 years old female with history of multiple medical problems, presented to my office on the day of admission because of acute pain on the back that started after a fall. The patient visited emergency room and she was found to have L1 and L2 spine fractures. The patient was discharged home on pain medications. The patient continued to have pain and difficulty ambulation. Subsequently, she was sent back to emergency room for evaluation and she was admitted. REVIEW OF SYSTEMS: Other review of systems is negative. ALLERGIES: POSITIVE FOR CORTISONE AND INSULIN. SOCIAL HISTORY: No history of smoking, EtOH, or substance abuse. FAMILY HISTORY: Not contributory. MEDICATIONS: Reviewed as per MAR and ordered. PAST MEDICAL HISTORY: Hypertension, type 2 diabetes mellitus, osteoarthritis, dysfunctional gait. PHYSICAL EXAMINATION: GENERAL: The patient is in bed, not in any cardiopulmonary distress. VITAL SIGNS: Blood pressure 165/70, temperature 98.8, respiratory rate 18, and pulse 78. HEENT: Pupils equal, reactive to light. Normal-appearing mucosa of the conjunctivae, oropharynx, and nasal membrane mucosa. NECK: Supple. No JVD. No carotid bruit. No lymph node. No thyromegaly. CHEST AND LUNGS: Bilateral symmetrical expansion. Good air exchange. No rales, no rhonchi. CARDIOVASCULAR SYSTEM: PMI not localized. S1, S2. No additional sounds. ABDOMEN: Normoactive bowel sounds. No tenderness. No organomegaly. No masses. EXTREMITIES: No cyanosis, no clubbing, no edema. 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 No neurological deficits could be appreciated. ASSESSMENT: 1. Acute spine fracture of L1 and L2 after a fall. 2. Type 2 diabetes mellitus. 3. Hypertension. 4. Osteoarthritis. 5. Dysfunctional gait. PLAN: We will give the patient Lidoderm patch and pain management, order TLSO, neurosurgical consult, DVT prophylaxis. Micheal Porter MD
[2018-09-21] MEDS: Ferrous fumarate/Vit C 65-25 MG TABLET.ER PO SCH ×2 (09:58→17:46)
[2018-09-21] MEDS: GlipiZIDE 10 mg SR Tab PO SCH ×2 (09:59→17:46)
[2018-09-21] MEDS: HCTZ/Losartan 12.5/50 Tab PO SCH (09:59)
[2018-09-21] MEDS: Lidocaine 5% Patch TD SCH (10:00)
[2018-09-21] MEDS: Enoxaparin 30 mg Syringe SC SCH (10:00)
[2018-09-21] MEDS: Metoprolol Succinate 25 mg XL Tab PO SCH (10:01)
[2018-09-22] MEDS: Ferrous fumarate/Vit C 65-25 MG TABLET.ER PO SCH ×2 (10:35→17:21)
[2018-09-22] MEDS: HCTZ/Losartan 12.5/50 Tab PO SCH (10:36)
[2018-09-22] MEDS: GlipiZIDE 10 mg SR Tab PO SCH ×2 (10:36→17:22)
[2018-09-22] MEDS: Lidocaine 5% Patch TD SCH (10:37)
[2018-09-22] MEDS: Enoxaparin 30 mg Syringe SC SCH (10:38)
[2018-09-22] MEDS: Metoprolol Succinate 25 mg XL Tab PO SCH (10:38)
--- NOTE | 2018-09-23 05:28 | PN ---
DATE: 09/21/2018 SUBJECTIVE: The patient was seen on 09/21/2018. She still had back pain. The patient was seen by Neurosurgery, and decision was conservative treatment. OBJECTIVE: VITAL SIGNS: Blood pressure was 153/77, temperature 98.2, respiratory rate 18, and pulse 69. HEENT: Pupils equal and reactive to light. Normal-appearing mucosa of the conjunctivae, oropharynx, and nasal membrane mucosa. NECK: Supple. No JVD. No carotid bruit. No lymph node. No thyromegaly. CHEST AND LUNGS: Bilateral symmetrical expansion. Good air exchange. No rales, no rhonchi. CARDIOVASCULAR SYSTEM: PMI not localized. S1, S2. No additional sounds. ABDOMEN: Normoactive bowel sounds. No tenderness. No organomegaly. No masses. EXTREMITIES: No cyanosis, no clubbing, no edema. 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 No neurological deficit could be appreciated x2. ASSESSMENT: 1. Fall with multiple lumbar spine fracture, L1 and L2 with intractable pain. 2. Type 2 diabetes mellitus. 3. Hypertension. 4. Dysfunctional gait. PLAN: Follow neurosurgical consultation. Continue current medications, and add Lidoderm patch 12 hours on and 12 hours off. Micheal Porter MD
--- NOTE | 2018-09-23 05:37 | PN ---
DATE: 09/22/2018 SUBJECTIVE: The patient is seen today, 09/22/2018. She still has back pain which is slightly better. OBJECTIVE: VITAL SIGNS: Blood pressure 169/70, temperature 98.6, respiratory rate 20, and pulse is 84. HEENT: Pupils equal and reactive to light. Normal-appearing mucosa of the conjunctivae, oropharynx, and nasal membrane mucosa. NECK: Supple. No JVD. No carotid bruit. No lymph node. No thyromegaly. CHEST AND LUNGS: Bilateral symmetrical expansion. Good air exchange. No rales, no rhonchi. CARDIOVASCULAR SYSTEM: PMI not localized. S1, S2. No additional sounds. ABDOMEN: Normoactive bowel sounds. No tenderness. No organomegaly. No masses. EXTREMITIES: No cyanosis, no clubbing, no edema. 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 No neurological deficit could be appreciated. ASSESSMENT: 1. Fall with multiple lumbar spine fracture. 2. Type 2 diabetes mellitus. 3. Hypertension. 4. Osteoarthritis. PLAN: Continue current pain management, physical therapy. Plan for subacute rehabilitation discharge. Micheal Porter MD
[2018-09-23] MEDS: Ferrous fumarate/Vit C 65-25 MG TABLET.ER PO SCH ×2 (09:43→18:03)
[2018-09-23] MEDS: HCTZ/Losartan 12.5/50 Tab PO SCH (09:47)
[2018-09-23] MEDS: GlipiZIDE 10 mg SR Tab PO SCH ×2 (09:47→18:03)
[2018-09-23] MEDS: Enoxaparin 30 mg Syringe SC SCH (09:48)
[2018-09-23] MEDS: Lidocaine 5% Patch TD SCH (09:48)
[2018-09-23] MEDS: Metoprolol Succinate 25 mg XL Tab PO SCH (09:49)
[2018-09-24] MEDS: Ferrous fumarate/Vit C 65-25 MG TABLET.ER PO SCH ×2 (08:46→17:01)
[2018-09-24] MEDS: GlipiZIDE 10 mg SR Tab PO SCH ×2 (08:46→17:01)
[2018-09-24] MEDS: Metoprolol Succinate 25 mg XL Tab PO SCH (08:47)
[2018-09-24] MEDS: HCTZ/Losartan 12.5/50 Tab PO SCH (08:49)
[2018-09-24] MEDS: Lidocaine 5% Patch TD SCH (08:50)
[2018-09-24 16:23] LABS: HEMOGLOBIN 9.9 g/dL (12.0-16.0); MEAN CELL VOLUME 88.1 fl (81.0-99.0); MEAN CORPUSCULAR HEMOGLOBIN 28.2 pg (27.0-31.0); RBC 3.5 Mil/uL (3.80-5.20); RED CELL DISTRIBUTION WIDTH 14.2 % (11.5-14.5); WHITE BLOOD COUNT 5.9 K/uL (4.8-10.8)
[2018-09-24 16:35] LABS: CALCIUM 9.4 mg/dL (8.4-10.2)
[2018-09-24] MEDS: Enoxaparin 30 mg Syringe SC SCH (17:02)
--- NOTE | 2018-09-25 01:16 | PN ---
DATE: 09/24/2018 SUBJECTIVE: The patient is seen today, 09/24/2018. She is not in any cardiopulmonary distress. PHYSICAL EXAMINATION: VITAL SIGNS: Blood pressure is 140/70, temperature 97.2, respiratory rate 18, and pulse 74. HEENT: Pupils equal and reactive to light. Normal-appearing mucosa of the conjunctivae, oropharynx, and nasal membrane mucosa. NECK: Supple. No JVD. No carotid bruit. No lymph node. No thyromegaly. CHEST AND LUNGS: Bilateral symmetrical expansion. Good air exchange. No rales, no rhonchi. CARDIOVASCULAR: PMI not localized. S1, S2. No additional sounds. ABDOMEN: Normoactive bowel sounds. No tenderness. No organomegaly. No masses. EXTREMITIES: No cyanosis, no clubbing, no edema. PROGRAM COORDINATOR EXECUTIVE EDUCATION: Alert, awake, oriented x2. No neurological deficit could be appreciated. ASSESSMENT: 1. Fall with acute lumbar spine fracture. 2. Type 2 diabetes mellitus. 3. Hypertension. 4. Osteoarthritis. PLAN: Continue current medications and pain management, physical therapy; and the patient is for discharge to subacute rehabilitation pending authorization by the insurance. Micheal Porter MD
[2018-09-25] MEDS: GlipiZIDE 10 mg SR Tab PO SCH ×2 (10:00→16:26)
[2018-09-25] MEDS: Ferrous fumarate/Vit C 65-25 MG TABLET.ER PO SCH ×2 (10:00→16:26)
[2018-09-25] MEDS: HCTZ/Losartan 12.5/50 Tab PO SCH (10:00)
[2018-09-25] MEDS: Enoxaparin 30 mg Syringe SC SCH (10:01)
[2018-09-25] MEDS: Lidocaine 5% Patch TD SCH (10:01)
[2018-09-25] MEDS: Metoprolol Succinate 25 mg XL Tab PO SCH (10:02)
[2018-09-25] MEDS: Sodium Chloride 0.45% 1,000 ML IV SCH (13:18)
--- NOTE | 2018-09-26 00:32 | PN ---
DATE: 09/25/2018 SUBJECTIVE: The patient is seen today, 09/25/2018. She is not in any cardiopulmonary distress. Pain is decreasing. OBJECTIVE: VITAL SIGNS: Blood pressure 160/76, temperature 98.1, respiratory rate 18, and pulse 74. HEENT: Pupils equal and reactive to light. Normal-appearing mucosa of the conjunctivae, oropharynx, and nasal membrane mucosa. NECK: Supple. No JVD. No carotid bruit. No lymph node. No thyromegaly. CHEST AND LUNGS: Bilateral symmetrical expansion. Good air exchange. No rales, no rhonchi. CARDIOVASCULAR SYSTEM: PMI not localized. S1, S2. No additional sounds. ABDOMEN: Normoactive bowel sounds. No tenderness. No organomegaly. No masses. EXTREMITIES: No cyanosis, no clubbing, no edema. GIVING OFFICER: Alert, awake, and oriented x2. No neurological deficit could be appreciated. ASSESSMENT: 1. Fall with multiple lumbar spine fracture with intractable pain. 2. Hypertension. 3. Type 2 diabetes mellitus. 4. Acute on chronic kidney disease with elevation of serum creatinine to 2. PLAN: We will stop the Lasix. Give the patient IV fluid and continue physical therapy and discharge to subacute rehabilitation when bed is available. Micheal Porter MD
[2018-09-26] MEDS: Sodium Chloride 0.45% 1,000 ML IV SCH ×2 (04:45→06:40)
[2018-09-26] MEDS: GlipiZIDE 10 mg SR Tab PO SCH (09:00)
[2018-09-26] MEDS ORDERED: Enoxaparin 30 mg Syringe SC SCH (09:00)
[2018-09-26] MEDS: HCTZ/Losartan 12.5/50 Tab PO SCH (09:11)
[2018-09-26] MEDS: Ferrous fumarate/Vit C 65-25 MG TABLET.ER PO SCH ×2 (09:11→17:00)
[2018-09-26] MEDS: Lidocaine 5% Patch TD SCH (09:12)
[2018-09-26] MEDS: Metoprolol Succinate 25 mg XL Tab PO SCH (09:12)
[2018-09-26 16:17] VITALS: RESP 18
[2018-09-26 17:30] VITALS: BP 159/67; PULSE 72; TEMP 98; O2SAT 95
== END 2018-09-26 17:45 | DRG 552 ==
LOC: H.ER 22:05 → H.ERHOLD 23:29 → H.MEDSURG1 09-20 21:00
PROVIDERS: ADMIT Internal Medicine; ATTEND Internal Medicine
PROC: F07Z9FZ Gait Training/Functional Ambulation Treatment using Assistive, Adaptive, Supportive or Protective Equipment (ICD-10-PCS; principal; 2018-09-19)
DX: S32.018A Other fracture of first lumbar vertebra, initial encounter for closed fracture (principal); S32.028A Other fracture of second lumbar vertebra, initial encounter for closed fracture; I12.9 Hypertensive chronic kidney disease with stage 1 through stage 4 chronic kidney disease, or unspecified chronic kidney disease; N18.9 Chronic kidney disease, unspecified; E11.22 Type 2 diabetes mellitus with diabetic chronic kidney disease; M19.90 Unspecified osteoarthritis, unspecified site; J45.909 Unspecified asthma, uncomplicated; E78.00 Pure hypercholesterolemia, unspecified; R26.89 Other abnormalities of gait and mobility; F32.9 Major depressive disorder, single episode, unspecified; F41.9 Anxiety disorder, unspecified; K59.00 Constipation, unspecified; Z95.0 Presence of cardiac pacemaker; Z79.84 Long term (current) use of oral hypoglycemic drugs; W01.0XXA Fall on same level from slipping, tripping and stumbling without subsequent striking against object, initial encounter; Y92.009 Unspecified place in unspecified non-institutional (private) residence as the place of occurrence of the external cause; Z88.8 Allergy status to other drugs, medicaments and biological substances; Z91.048 Other nonmedicinal substance allergy status

== ENCOUNTER 2019-03-31 12:02 | Inpatient (IN) | payer MEDICARE, OTHER ==
[2019-03-31 12:02] VITALS: BMI 39.3
[2019-03-31] MEDS ORDERED: Dextrose 50% SYRINGE Inj (50 ml) IVP ONE ×2 (12:19→12:20)
[2019-03-31] MEDS ORDERED: DEXTROSE 50% IV ONE (12:21)
[2019-03-31 12:39] LABS: VENOUS BLOOD GAS BASE EXCESS 4.4 mmol/L (0.0-2.0); VENOUS BLOOD GAS PCO2 65 mmHg (40-60); VENOUS BLOOD GAS PO2 26 mm/Hg (30-55); VENOUS BLOOD PH 7.31 (7.32-7.43)
[2019-03-31 12:45] LABS: BASO % 0.2 % (0.0-2.0); EOS % 0.1 % (0.0-4.0); HEMOGLOBIN 9.7 g/dL (12.0-16.0); LYMPH # 1.1 K/uL (1.0-4.3); LYMPH % 13.3 % (20.0-40.0); MEAN CELL VOLUME 88.7 fl (81.0-99.0); MEAN CORPUSCULAR HEMOGLOBIN 27.4 pg (27.0-31.0); MEAN CORPUSCULAR HGB CONC 30.9 g/dL (33.0-37.0); MEAN PLATELET VOLUME 10.3 fl (7.2-11.7); MONO # 0.6 K/uL (0.0-0.8); MONO % 7.3 % (0.0-10.0); NEUT # 6.4 K/uL (1.8-7.0); NEUT % 79.1 % (50.0-75.0); NRBC % 0.2 % (0.0-0.0); RBC 3.54 Mil/uL (3.80-5.20); RED CELL DISTRIBUTION WIDTH 15.5 % (11.5-14.5); WHITE BLOOD COUNT 8.1 K/uL (4.8-10.8)
--- NOTE | 2019-03-31 12:49 | ED PDOC ---
Syncope/Near Syncope/Dizziness Time Seen by Provider: 03/31/19 12:17 Chief Complaint (Nursing): Trauma Chief Complaint (Provider): Syncope History Per: Patient, Family History/Exam Limitations: no limitations Onset/Duration Of Symptoms: Days Current Symptoms Are (Timing): Still Present Additional Complaint(s): 78 y/o female brought in by EMS accompanied by daughter for evaluation of a syncopal episode. Daughter states patient went to [employer] her mother from [employer] when she heard her mother screaming on the floor stating she can't get up. Patient is unsure how she fell. Patient is denying any pain at this time. As per daughter, patient had a witnessed syncopal episode yesterday and when EMS showed up, patient was alert and oriented and refusing to go to the hospital. Patient was last seen well at 4 PM yesterday as per daughter. Patient and daughter deny vomiting, diarrhea, cough and other complaints. Patient additionally denies taking any morning medications. PMD: Micheal Porter NIHSS Stroke Scale - Date/Time Evaluation Performed Date Performed: 03/31/19 Time Performed: 12:30 - How Severe is the Stroke Level of Consciousness: 0=Alert LOC to Questions: 0=Both comments correct LOC to commands: 0=Obeys both correctly Best Gaze: 0=Normal Visual: 0=No visual loss Facial: 0=Normal Motor Arm - Left: 0=No drift Motor Arm - Right: 0=No drift Motor Leg - Left: 0=No drift Motor Leg - Right: 0=No drift Limb Ataxia: 1=Present Upper or Lower (Bilateral legs are moving symmetrically. However, patient cannot lift legs off the bed. At baseline, patient's legs are weak. All leg and arm strengths are symmetric.) Dysarthia: 0=Normal articulation Extinction & Inattention (Neglect): 0=Normal, no object Past Medical History Reviewed: Historical Data, Nursing Documentation, Vital Signs Vital Signs: Last Vital Signs Temp 98.1 F 03/31/19 12:08 Pulse 78 03/31/19 12:32 Resp 20 03/31/19 12:32 BP 167/72 H 03/31/19 12:32 Pulse Ox 87 L 03/31/19 12:32 Primary Care Provider: FAMILY PROVIDER,NO - Medical History PMH: Anxiety, Arthritis, Asthma (Inhaler), Depression, Diabetes, HTN, Hypercholesterolemia Denies: Alzheimer's Disease, Dementia (denies hx, so does dgtr), HIV, Chronic Kidney Disease - Surgical History Surgical History: Appendectomy, Cholecystectomy Denies: Pacemaker - Family History Family History: States: Unknown Family Hx - Home Medications Home Medications: Ambulatory Orders Medication Instructions Recorded ALPRAZolam [Xanax] 0.25 mg PO Q12 PRN 03/30/18 Atorvastatin [Lipitor] 40 mg PO HS 03/30/18 Fenofibrate 200 mg PO DAILY 03/30/18 Furosemide [Lasix] 20 mg PO DAILY 03/30/18 Metoprolol Succinate XL [Toprol XL] 50 mg PO DAILY 03/30/18 Amitriptyline [Elavil] 50 mg PO Q12 09/20/18 Aspirin [Aspirin Chewable] 81 mg PO DAILY 09/20/18 Docusate [Colace] 100 mg PO Q12 09/20/18 Donepezil [Aricept] 10 mg PO DAILY 09/20/18 Glimepiride [amaRYL] 4 mg PO BID 09/20/18 Losartan/Hydrochlorothiazide 1 tab PO DAILY 09/20/18 [Hyzaar 100-25 Tablet] Pioglitazone HCl [Actos] 30 mg PO DAILY 09/20/18 metFORMIN [glucOPHAGE] 500 mg PO BID 09/20/18 Acetaminophen [Tylenol 325mg tab] 650 mg PO Q4 PRN tab 09/21/18 Famotidine [Pepcid AC] 10 mg PO DAILY 03/31/19 Ferrous Sulfate [Feosol] 325 mg PO BID 03/31/19 Fluticasone Propionate [Flovent 50 mcg KINA PRN PRN 03/31/19 Diskus] Ibuprofen [Motrin Tab] 200 mg PO PRN PRN 03/31/19 - Allergies Allergies/Adverse Reactions: Allergies Allergy/AdvReac Type Severity Reaction Status Date / Time cortisone AdvReac ill feeling Verified 03/31/19 12:12 Insulins AdvReac RASH Verified 03/31/19 12:12 Review of Systems ROS Statement: Except As Marked, All Systems Reviewed And Found Negative Respiratory: Negative for: Cough Gastrointestinal: Negative for: Vomiting, Diarrhea Neurological: Positive for: Other (syncope) Physical Exam - Reviewed Nursing Documentation Reviewed: Yes Vital Signs Reviewed: Yes - Physical Exam Appears: Positive for: No Acute Distress Head Exam: Positive for: ATRAUMATIC, NORMOCEPHALIC Skin: Positive for: Normal Color, Warm, Dry Eye Exam: Positive for: Normal appearance, EOMI, PERRL Neck: Positive for: Normal, Painless ROM Cardiovascular/Chest: Positive for: Regular Rate, Rhythm. Negative for: Murmur Respiratory: Positive for: Normal Breath Sounds. Negative for: Respiratory Distress Gastrointestinal/Abdominal: Positive for: Soft, Distended. Negative for: Tenderness, Guarding Neurological/Psych: Positive for: Awake, Alert, Oriented (x2 - to person and place. Patient cannot identify day of week. ), Cerebellar Tests (normal), building equipment inspector II-XII (intact). Negative for: Motor/Sensory Deficits, Facial Droop - Laboratory Results Result Diagrams: 03/31/19 12:30 04/03/19 04:55 Lab Results: pO2 26 mm/Hg (30-55) L 03/31/19 12:33 VBG pH 7.31 (7.32-7.43) L 03/31/19 12:33 VBG pCO2 65 mmHg (40-60) H 03/31/19 12:33 VBG HCO3 26.8 mmol/L 03/31/19 12:33 VBG Total CO2 34.7 mmol/L (22-28) H 03/31/19 12:33 VBG O2 Sat (Calc) 49.2 % (40-65) 03/31/19 12:33 VBG Base Excess 4.4 mmol/L (0.0-2.0) H 03/31/19 12:33 VBG Potassium 4.4 mmol/L (3.6-5.2) 03/31/19 12:33 Sodium 141.0 mmol/L (132-148) 03/31/19 12:33 Chloride 104.0 mmol/L (98-107) 03/31/19 12:33 Glucose 25 mg/dL (65-105) L* D 03/31/19 12:33 Lactate 0.7 mmol/L (0.7-2.1) 03/31/19 12:33 FiO2 21.0 % 03/31/19 12:33 - ECG ECG: Positive for: Interpreted By Me, Viewed By Me ECG Rhythm: Positive for: Sinus Rhythm Rate: 81 O2 Sat by Pulse Oximetry: 87 (RA) Pulse Ox Interpretation: Normal Medical Decision Making Medical Decision Making: Time: 1245 A/P: Workup for two episods of syncope and hypoglycemia (on glimepiride) -- Patient initially given 2 amps of D50. -- Labs sent -- CT Brain -- Finger stick was 20 upon arrival. -- Patient to be admitted under Dr. Porter's service -- VBG -- CT Head w/o Contrast -- EKG -- BNP -- CMP -- Troponin I -- CBC with Differentials -- PTT -- Prothrombin Time -- CXR Portable -- Glucose, POC -- Dextrose 50% Inj 50 ml IV -- Dextrose 50% Inj 50 ml IV -- Urinalysis Time: 1401 -- Patient with elevated troponin. However, no ST elevations noted on EKG. Patient just gone to CT. Neuro status unchanged, alert and oriented and moving all extremities. Time: 1430 CT HEAD RESULTS Date of service: 03/31/2019 PROCEDURE: CT HEAD WITHOUT CONTRAST. HISTORY: Syncope COMPARISON: None available. TECHNIQUE: Axial computed tomography images were obtained through the head/brain without intravenous contrast. Radiation dose: Total exam DLP = 791.87 mGy-cm. This CT exam was performed using one or more of the following dose reduction techniques: Automated exposure control, adjustment of the mA and/or kV according to patient size, and/or use of iterative reconstruction technique. FINDINGS: HEMORRHAGE: No acute parenchymal, subarachnoid or extra-axial hemorrhage. BRAIN: Moderate diffuse/confluent chronic periventricular white matter ischemic changes seen extending peripherally into the deep white matter both cerebral hemispheres.. Moderate- significant generalized volume loss. Vascular calcifications both carotid siphons. VENTRICLES: No obstructive hydrocephalus CALVARIUM: Unremarkable. PARANASAL SINUSES: Unremarkable as visualized. No significant inflammatory changes. MASTOID AIR CELLS: Unremarkable as visualized. No inflammatory changes. OTHER FINDINGS: Changes of bilateral cataract surgery. IMPRESSION: No acute intracranial hemorrhage. Moderate chronic white matter ischemic changes. Moderate to significant generalized volume loss. Time: 1453 Plan: -- CPK -- Sodium Chloride IV 1000 mls/hr Scribe Attestation: Documented by Mina Bernal, acting as a scribe Tracy Cook MD. Provider Scribe Attestation: All medical record entries made by the Scribe were at my direction and personally dictated by me. I have reviewed the chart and agree that the record accurately reflects my personal performance of the history, physical exam, medical decision making, and the department course for this patient. I have also personally directed, reviewed, and agree with the discharge instructions and disposition. Disposition - Clinical Impression Clinical Impression: Hypoglycemia, Syncope - Disposition Disposition Time: 14:48 Condition: FAIR
[2019-03-31 13:25] LABS: INR 1.2; PROTHROMBIN TIME 13.5 Seconds (9.8-13.1)
[2019-03-31 13:28] LABS: PARTIAL THROMBOPLASTIN TIME 32.4 Seconds (25.6-37.1)
[2019-03-31 13:48] LABS: ALB/GLOB RATIO 1.1 (1.0-2.1); ALBUMIN 4.2 g/dL (3.5-5.0); CALCIUM 8.8 mg/dL (8.4-10.2); TROPONIN I 0.159 ng/mL (0.00-0.120)
--- NOTE | 2019-03-31 14:34 | CT ---
Date of service: 03/31/2019 PROCEDURE: CT HEAD WITHOUT CONTRAST. HISTORY: Syncope COMPARISON: None available. TECHNIQUE: Axial computed tomography images were obtained through the head/brain without intravenous contrast. Radiation dose: Total exam DLP = 791.87 mGy-cm. This CT exam was performed using one or more of the following dose reduction techniques: Automated exposure control, adjustment of the mA and/or kV according to patient size, and/or use of iterative reconstruction technique. FINDINGS: HEMORRHAGE: No acute parenchymal, subarachnoid or extra-axial hemorrhage. BRAIN: Moderate diffuse/confluent chronic periventricular white matter ischemic changes seen extending peripherally into the deep white matter both cerebral hemispheres.. Moderate- significant generalized volume loss. Vascular calcifications both carotid siphons. VENTRICLES: No obstructive hydrocephalus CALVARIUM: Unremarkable. PARANASAL SINUSES: Unremarkable as visualized. No significant inflammatory changes. MASTOID AIR CELLS: Unremarkable as visualized. No inflammatory changes. OTHER FINDINGS: Changes of bilateral cataract surgery. IMPRESSION: No acute intracranial hemorrhage. Moderate chronic white matter ischemic changes. Moderate to significant generalized volume loss.
[2019-03-31] MEDS ORDERED: Sodium Chloride 0.9% 1,000 ML IV STA (14:53)
[2019-03-31] MEDS ORDERED: Iodixanol 320 MG/ML 100 ML BOTTLE IV ONE (16:31)
[2019-03-31] MEDS ORDERED: Sodium Chloride 0.9% 50 ML IV ONE (16:32)
--- NOTE | 2019-03-31 17:22 | RAD ---
Date of service: 03/31/2019 HISTORY: Possible admission COMPARISON: Comparison made with prior chest radiograph 09/19/2018 COMPARISON: TECHNIQUE: 1 view obtained. FINDINGS: LUNGS: Questionable mild chronic compensated pulmonary venous congestion PLEURA: No significant pleural effusion identified, no pneumothorax apparent. CARDIOVASCULAR: No aortic atherosclerotic calcification present. Heart appears enlarged no pulmonary vascular congestion. OSSEOUS STRUCTURES: No significant abnormalities. VISUALIZED UPPER ABDOMEN: Normal. OTHER FINDINGS: None. IMPRESSION: Questionable mild chronic compensated pulmonary venous congestion
--- NOTE | 2019-03-31 17:56 | CT ---
Date of service: 03/31/2019 PROCEDURE: CT Angiography of the neck and brain HISTORY: Syncope COMPARISON: Correlation made with CT scan brain earlier same day. TECHNIQUE: Contiguous axial images of the neck were obtained from the level of the vertex of the skull to the superior mediastinum in the arteriographic phase of enhancement. Coronal and sagittal reformats or also generated. IV contrast dose: 90 cc Visipaque 320 Radiation dose: Total exam DLP = 444.89 mGy-cm. This CT exam was performed using one or more of the following dose reduction techniques: Automated exposure control, adjustment of the mA and/or kV according to patient size, and/or use of iterative reconstruction technique. FINDINGS: There is mild aortic atherosclerotic calcification or mural plaque present. Minor calcification also seen at the origins of the great vessels. The common carotid arteries are patent although there are some minor calcified plaque changes seen along both carotid bifurcations with slight extension into the proximal margins of both the internal carotid arteries. No significant stenosis. Both common carotid arteries also demonstrate a short retropharyngeal course The distal internal carotid arteries including the petrous cavernous and supraclinoid segments are patent. Partially calcified atherosclerotic plaque also noted at both carotid siphons and extending into the supraclinoid carotid arteries more so on the right side The vertebral arteries are patent throughout right-sided which is larger in caliber than the left side.. The basilar artery is patent. The distal branches of the anterior middle and posterior cerebral arteries are present and appear relatively symmetric No definitive evidence of large aneurysm nor vascular malformation. OTHER FINDINGS: Tiny calcifications are seen in region of the both palatine tonsils right greater than left. Multilevel degenerative spondylosis of the cervical spine with acute kyphotic angulation deformity centered at the C4-C5 level. Fusion changes of the C5 and C6 vertebral body segments IMPRESSION: Minor atherosclerotic plaque both carotid bifurcations without significant stenosis. Moderate calcified atherosclerotic plaque both carotid siphons. No evidence of occlusion or dissection. See above discussion for additional details and findings
[2019-03-31] MEDS ORDERED: FLUTICASONE PROPIONATE 50 MCG NAS PRN (18:02)
[2019-03-31] MEDS: GlipiZIDE 10 mg SR Tab PO SCH (19:05)
[2019-03-31] MEDS ORDERED: Metoprolol Succinate 50 mg XL Tab PO STA (20:32)
--- NOTE | 2019-03-31 21:55 | CARD ---
APPROVED REPORT Date of service: 03/31/2019 EKG Measurement Heart [id number] <Conclusion> Normal sinus rhythm Normal ECG
[2019-03-31] MEDS ORDERED: Insulin Lispro (humaLOG) 100 Units/ml Inj SC SCH (22:00)
[2019-04-01] MEDS ORDERED: Patient's Own Med (Losartan/Hydrochlorothiazide [Hyzaar 100-25 Tablet] 1 TAB) PO SCH (09:00)
[2019-04-01] MEDS: HCTZ/Losartan 12.5/50 Tab PO SCH (09:39)
[2019-04-01] MEDS: GlipiZIDE 10 mg SR Tab PO SCH ×2 (09:39→17:36)
[2019-04-01] MEDS: Metoprolol Succinate 50 mg XL Tab PO SCH (09:41)
[2019-04-01 11:48] LABS: ABG ALLEN TEST YES; ARTERIAL BLOOD GAS HCO3 31.3 mmol/L (21-28); ARTERIAL BLOOD GAS HEMOGLOBIN 8.2 g/dL (11.7-17.4); ARTERIAL BLOOD GAS O2 CAPACITY 11.3 mL/dL (16-24); ARTERIAL BLOOD GAS O2 CONTENT 11.3 ML/dL (15-23); ARTERIAL BLOOD GAS O2 SAT 99.9 % (95-98); ARTERIAL BLOOD GAS PCO2 60 mm/Hg (35-45); ARTERIAL BLOOD GAS PH 7.37 (7.35-7.45); ARTERIAL BLOOD GAS PO2 100 mm/Hg (80-100); ARTERIAL BLOOD GAS TCO2 36.5 mmol/L (22-28)
--- NOTE | 2019-04-01 12:16 | CP.PCM.CON ---
History of Present Illness - History of Present Illness History of Present Illness: Neurology consult dictated. Miss Figueroa had her stereotypical hypoglycemic spell that resulted in syncope. No neurological intervention suggested at this time. Dr. spann Neurology Past Patient History - Past Medical History & Family History Past Medical History?: Yes - Past Social History Smoking Status: Never Smoked - CARDIAC Hx Cardiac Disorders: Yes Hx Hypercholesterolemia: Yes Hx Hypertension: Yes - PULMONARY Hx Respiratory Disorders: Yes Hx Asthma: Yes - NEUROLOGICAL Hx Neurological Disorder: No Hx Alzheimer's Disease: No Hx Dementia: No (denies hx, so does dgtr) - HEENT Hx HEENT Problems: Yes Other/Comment: eyeglasses - RENAL Hx Chronic Kidney Disease: No - ENDOCRINE/METABOLIC Hx Endocrine Disorders: Yes Hx Diabetes Mellitus Type 2: Yes - HEMATOLOGICAL/ONCOLOGICAL Hx Blood Disorders: No Hx AIDS: No Hx Human Immunodeficiency Virus (HIV): No - INTEGUMENTARY Hx Dermatological Problems: Yes Other/Comment: dry skin - MUSCULOSKELETAL/RHEUMATOLOGICAL Hx Musculoskeletal Disorders: Yes Hx Arthritis: Yes Hx Back Pain: Yes Hx Falls: Yes - GASTROINTESTINAL Hx Gastrointestinal Disorders: No - GENITOURINARY/GYNECOLOGICAL Hx Genitourinary Disorders: Yes Hx Incontinence: Yes (wears diaper) - PSYCHIATRIC Hx Psychophysiologic Disorder: Yes Hx Anxiety: Yes Hx Depression: Yes Hx Substance Use: No - SURGICAL HISTORY Hx Surgeries: Yes Hx Appendectomy: Yes Hx Cholecystectomy: Yes Hx Joint Replacement: Yes (left knee) - ANESTHESIA Hx Anesthesia: Yes Hx Anesthesia Reactions: No Hx Malignant Hyperthermia: No Has any member of the family had a problem w/ anesthesia?: No Meds Allergies/Adverse Reactions: Allergies Allergy/AdvReac Type Severity Reaction Status Date / Time cortisone AdvReac ill feeling Verified 03/31/19 12:12 Insulins AdvReac RASH Verified 03/31/19 12:12 - Medications Medications: Current Medications Acetaminophen (Tylenol 325mg Tab) 650 mg PO Q4 PRN PRN Reason: Pain, moderate (4-7) Alprazolam (Xanax) 0.25 mg PO Q12 PRN PRN Reason: Anxiety Stop: 04/07/19 18:03 Amitriptyline HCl (Elavil) 50 mg PO Q12 [facility] Last Admin: 04/01/19 09:41 Dose: 50 mg Aspirin (Aspirin Chewable) 81 mg PO DAILY [facility] Last Admin: 04/01/19 09:41 Dose: 81 mg Atorvastatin Calcium (Lipitor) 40 mg PO HS [facility] Last Admin: 03/31/19 22:00 Dose: 40 mg Docusate Sodium (Colace) 100 mg PO Q12 NO Last Admin: 04/01/19 09:41 Dose: 100 mg Donepezil HCl (Aricept) 10 mg PO DAILY [facility] Last Admin: 04/01/19 09:40 Dose: 10 mg Fenofibrate (Tricor) 145 mg PO DAILY [facility] Last Admin: 04/01/19 09:39 Dose: 145 mg Ferrous Sulfate (Feosol) 325 mg PO BID [facility] Last Admin: 04/01/19 09:41 Dose: 325 mg Furosemide (Lasix) 40 mg IV DAILY [facility] Glipizide (Glucotrol Xl) 10 mg PO BID@0800,1700 [facility] Last Admin: 04/01/19 09:39 Dose: 10 mg HCTZ/Losartan Potassium (Hyzaar 12.5 Mg-50 Mg) 2 tab PO DAILY NO Last Admin: 04/01/19 09:39 Dose: 2 tab Heparin Sodium (Porcine) (Heparin) 5,000 units SC Q8 [facility]; Protocol Last Admin: 04/01/19 09:39 Dose: 5,000 units Metformin HCl (Glucophage) 500 mg PO BID [facility] Last Admin: 04/01/19 09:39 Dose: 500 mg Metoprolol Succinate (Toprol Xl) 50 mg PO DAILY [facility] Last Admin: 04/01/19 09:41 Dose: 50 mg Pioglitazone HCl (Actos) 30 mg PO DAILY [facility] Last Admin: 04/01/19 09:40 Dose: 30 mg Results - Vital Signs Recent Vital Signs: Last Vital Signs Temp 98.7 F 04/01/19 12:15 Pulse 77 04/01/19 12:15 Resp 20 04/01/19 12:15 BP 159/71 H 04/01/19 12:15 Pulse Ox 97 04/01/19 12:15 - Labs Result Diagrams: 03/31/19 12:30 03/31/19 13:12 Labs: Laboratory Results - last 24 hr 03/31/19 03/31/19 03/31/19 12:18 12:27 12:30 WBC 8.1 RBC 3.54 L Hgb 9.7 L Hct 31.4 L MCV 88.7 MCH 27.4 MCHC 30.9 L RDW 15.5 H Plt Count 312 MPV 10.3 Neut % (Auto) 79.1 H Lymph % (Auto) 13.3 L [place] % (Auto) 7.3 Eos % (Auto) 0.1 Baso % (Auto) 0.2 Neut # (Auto) 6.4 Lymph # (Auto) 1.1 [place] # (Auto) 0.6 Eos # (Auto) 0.0 Baso # (Auto) 0.0 PT INR APTT D-Dimer, Quantitative pCO2 pO2 HCO3 ABG pH ABG Total CO2 ABG O2 Saturation ABG O2 Content ABG Base Excess ABG Hemoglobin ABG Carboxyhemoglobin POC ABG HHb (Measured) ABG Methemoglobin ABG O2 Capacity Emory Test VBG pH VBG pCO2 VBG HCO3 VBG Total CO2 VBG O2 Sat (Calc) VBG Base Excess VBG Potassium A-a O2 Difference Hgb O2 Saturation Sodium Chloride Glucose Lactate FiO2 Potassium Carbon Dioxide Anion Gap BUN Creatinine Est GFR ( Amer) Est GFR (Non-Af Amer) POC Glucose (mg/dL) < 20 L* 24 L* Random Glucose Calcium Total Bilirubin AST ALT Alkaline Phosphatase Total Creatine Kinase Troponin I NT-Pro-B Natriuret Pep Total Protein Albumin Globulin Albumin/Globulin Ratio Venous Blood Potassium 03/31/19 03/31/19 03/31/19 12:33 12:42 13:12 WBC RBC Hgb Hct MCV MCH MCHC RDW Plt Count MPV Neut % (Auto) Lymph % (Auto) [place] % (Auto) Eos % (Auto) Baso % (Auto) Neut # (Auto) Lymph # (Auto) [place] # (Auto) Eos # (Auto) Baso # (Auto) PT INR APTT D-Dimer, Quantitative pCO2 pO2 26 L HCO3 ABG pH ABG Total CO2 ABG O2 Saturation ABG O2 Content ABG Base Excess ABG Hemoglobin ABG Carboxyhemoglobin POC ABG HHb (Measured) ABG Methemoglobin ABG O2 Capacity Emory Test VBG pH 7.31 L VBG pCO2 65 H VBG HCO3 26.8 VBG Total CO2 34.7 H VBG O2 Sat (Calc) 49.2 VBG Base Excess 4.4 H VBG Potassium 4.4 A-a O2 Difference Hgb O2 Saturation Sodium 141.0 139 Chloride 104.0 101 Glucose 25 L* D Lactate 0.7 FiO2 21.0 Potassium 4.4 Carbon Dioxide 28 Anion Gap 14 BUN 31 H Creatinine 1.4 H Est GFR ( Amer) 44 Est GFR (Non-Af Amer) 37 POC Glucose (mg/dL) 123 H Random Glucose 174 H Calcium 8.8 Total Bilirubin 0.4 AST 35 ALT 27 Alkaline Phosphatase 46 Total Creatine Kinase Troponin I 0.1590 H* NT-Pro-B Natriuret Pep 1190 H Total Protein 8.2 Albumin 4.2 Globulin 3.9 Albumin/Globulin Ratio 1.1 Venous Blood Potassium 4.4 03/31/19 03/31/19 03/31/19 13:12 13:41 14:40 WBC RBC Hgb Hct MCV MCH MCHC RDW Plt Count MPV Neut % (Auto) Lymph % (Auto) [place] % (Auto) Eos % (Auto) Baso % (Auto) Neut # (Auto) Lymph # (Auto) [place] # (Auto) Eos # (Auto) Baso # (Auto) PT 13.5 H INR 1.2 APTT 32.4 D-Dimer, Quantitative pCO2 pO2 HCO3 ABG pH ABG Total CO2 ABG O2 Saturation ABG O2 Content ABG Base Excess ABG Hemoglobin ABG Carboxyhemoglobin POC ABG HHb (Measured) ABG Methemoglobin ABG O2 Capacity Emory Test VBG pH VBG pCO2 VBG HCO3 VBG Total CO2 VBG O2 Sat (Calc) VBG Base Excess VBG Potassium A-a O2 Difference Hgb O2 Saturation Sodium Chloride Glucose Lactate FiO2 Potassium Carbon Dioxide Anion Gap BUN Creatinine Est GFR ( Amer) Est GFR (Non-Af Amer) POC Glucose (mg/dL) 104 Random Glucose Calcium Total Bilirubin AST ALT Alkaline Phosphatase Total Creatine Kinase 147 H Troponin I NT-Pro-B Natriuret Pep Total Protein Albumin Globulin Albumin/Globulin Ratio Venous Blood Potassium 03/31/19 03/31/19 03/31/19 15:35 19:15 19:45 WBC RBC Hgb Hct MCV MCH MCHC RDW Plt Count MPV Neut % (Auto) Lymph % (Auto) [place] % (Auto) Eos % (Auto) Baso % (Auto) Neut # (Auto) Lymph # (Auto) [place] # (Auto) Eos # (Auto) Baso # (Auto) PT INR APTT D-Dimer, Quantitative 368 H pCO2 pO2 HCO3 ABG pH ABG Total CO2 ABG O2 Saturation ABG O2 Content ABG Base Excess ABG Hemoglobin ABG Carboxyhemoglobin POC ABG HHb (Measured) ABG Methemoglobin ABG O2 Capacity Emory Test VBG pH VBG pCO2 VBG HCO3 VBG Total CO2 VBG O2 Sat (Calc) VBG Base Excess VBG Potassium A-a O2 Difference Hgb O2 Saturation Sodium Chloride Glucose Lactate FiO2 Potassium Carbon Dioxide Anion Gap BUN Creatinine Est GFR ( Amer) Est GFR (Non-Af Amer) POC Glucose (mg/dL) 126 H Random Glucose Calcium Total Bilirubin AST ALT Alkaline Phosphatase Total Creatine Kinase Troponin I 0.3260 H* NT-Pro-B Natriuret Pep Total Protein Albumin Globulin Albumin/Globulin Ratio Venous Blood Potassium 03/31/19 03/31/19 04/01/19 21:22 22:10 04:50 WBC RBC Hgb Hct MCV MCH MCHC RDW Plt Count MPV Neut % (Auto) Lymph % (Auto) [place] % (Auto) Eos % (Auto) Baso % (Auto) Neut # (Auto) Lymph # (Auto) [place] # (Auto) Eos # (Auto) Baso # (Auto) PT INR APTT D-Dimer, Quantitative pCO2 pO2 HCO3 ABG pH ABG Total CO2 ABG O2 Saturation ABG O2 Content ABG Base Excess ABG Hemoglobin ABG Carboxyhemoglobin POC ABG HHb (Measured) ABG Methemoglobin ABG O2 Capacity Emory Test VBG pH VBG pCO2 VBG HCO3 VBG Total CO2 VBG O2 Sat (Calc) VBG Base Excess VBG Potassium A-a O2 Difference Hgb O2 Saturation Sodium Chloride Glucose Lactate FiO2 Potassium Carbon Dioxide Anion Gap BUN Creatinine Est GFR ( Amer) Est GFR (Non-Af Amer) POC Glucose (mg/dL) 75 130 H Random Glucose Calcium Total Bilirubin AST ALT Alkaline Phosphatase Total Creatine Kinase Troponin I 0.2320 H* NT-Pro-B Natriuret Pep Total Protein Albumin Globulin Albumin/Globulin Ratio Venous Blood Potassium 04/01/19 04/01/19 04/01/19 05:34 11:02 11:10 WBC RBC Hgb Hct MCV MCH MCHC RDW Plt Count MPV Neut % (Auto) Lymph % (Auto) [place] % (Auto) Eos % (Auto) Baso % (Auto) Neut # (Auto) Lymph # (Auto) [place] # (Auto) Eos # (Auto) Baso # (Auto) PT INR APTT D-Dimer, Quantitative pCO2 60 H pO2 100 HCO3 31.3 H ABG pH 7.37 ABG Total CO2 36.5 H ABG O2 Saturation 99.9 H ABG O2 Content 11.3 L ABG Base Excess 8.2 H ABG Hemoglobin 8.2 L ABG Carboxyhemoglobin 1.4 POC ABG HHb (Measured) 0.1 ABG Methemoglobin 2.0 ABG O2 Capacity 11.3 L Emory Test Yes VBG pH VBG pCO2 VBG HCO3 VBG Total CO2 VBG O2 Sat (Calc) VBG Base Excess VBG Potassium A-a O2 Difference 103.0 Hgb O2 Saturation 96.5 Sodium Chloride Glucose Lactate FiO2 39.0 Potassium Carbon Dioxide Anion Gap BUN Creatinine Est GFR ( Amer) Est GFR (Non-Af Amer) POC Glucose (mg/dL) 70 180 H Random Glucose Calcium Total Bilirubin AST ALT Alkaline Phosphatase Total Creatine Kinase Troponin I NT-Pro-B Natriuret Pep Total Protein Albumin Globulin Albumin/Globulin Ratio Venous Blood Potassium
[2019-04-01] MEDS ORDERED: Sodium Chloride 0.9% 1,000 ML IV SCH (16:30)
--- NOTE | 2019-04-01 16:43 | NM ---
Date of service: 04/01/2019 COMPARISON: Frontal chest radiograph 03/31/2019. TECHNIQUE: 40.380 mCi technetium 99-m DTPA aerosol. 5.048 mCI technetium 99-m MAA administered intravenously. FINDINGS: VENTILATION COMPONENT: Central airway deposition of isotope suspicious for COPD. PERFUSION COMPONENT: Small matched defects are appreciated including at the superior segment left lower lobe lateral right lower lobe. No perfusion mismatches. IMPRESSION: Lowprobability ventilation perfusion scan for pulmonary embolism.
--- NOTE | 2019-04-01 19:20 | CARD ---
APPROVED REPORT Date of service: 04/01/2019 EXAM: Two-dimensional and M-mode echocardiogram with Doppler and color Doppler. Other Information Quality : AverageRhythm : NSR INDICATION Syncope 2D DIMENSIONS IVSd1.54 (0.7-1.1cm)LVDd4.24 (3.9-5.9cm) LVOT Diameter2.15 (1.8-2.4cm)PWd1.33 (0.7-1.1cm) IVSs1.98 (0.8-1.2cm)LVDs2.78 (2.5-4.0cm) FS (%) 34.5 %PWs1.77 (0.8-1.2cm) M-Mode DIMENSIONS Left Atrium (MM)4.56 (2.5-4.0cm)IVSd1.21 (0.7-1.1cm) Aortic Root2.94 (2.2-3.7cm)LVDd5.29 (4.0-5.6cm) Aortic Cusp Exc.1.85 (1.5-2.0cm)PWd1.21 (0.7-1.1cm) IVSs1.79 cmFS (%) 43 % LVDs3.00 (2.0-3.8cm)PWs1.15 cm Aortic Valve AoV Peak Agxhdroj114.5cm/sAoV VTI60.2cmAO Peak GR.29mmHg LVOT Peak Nnsltehh940.9cm/sLVOT VTI27.26cmAO Mean GR.16mmHg FRANK (VMAX)0.66bg9GKX (VTI)0.81cm2 Mitral Valve MV E Nrbtkaif132.2cm/sMV DECEL FOTP279anOG A Pszrhznd074.5cm/s MV MUX61kvW/A ratio0.9MVA (PHT)3.41cm2 TDI Lateral E' Peak V10.43cm/sMedial E' Peak V8.64cm/sE/Lateral E'14.2 E/Medial E'17.2 Tricuspid Valve TR Peak Uvemyoep711mk/sRAP [id number] Peak Gr.36mmHg [id number] LEFT VENTRICLE The left ventricle is normal size. There is mild concentric left ventricular hypertrophy. The left ventricular systolic function is normal. The estimated ejection fraction is 55-60% No regional wall motion abnormalities noted.. Transmitral Doppler flow pattern is Grade I-abnormal relaxation pattern. No left ventricle thrombus noted on this study. There is no ventricular septal defect visualized. There is no left ventricular aneurysm. There is no mass noted in the left ventricle. RIGHT VENTRICLE The right ventricle is normal size. There is normal right ventricular wall thickness. The right ventricular systolic function is normal. ATRIA The left atrium is moderately dilated. The right atrium size is normal. The interatrial septum is intact with no evidence for an atrial septal defect. AORTIC VALVE The aortic valve is normal in structure. No aortic regurgitation is present. There is mild aortic valvular stenosis. Peak aortic velocity is measured at - 3 m/sec. There is no aortic valvular vegetation. MITRAL VALVE The mitral valve is normal in structure. There is no evidence of mitral valve prolapse. There is no mitral valve stenosis. There is no mitral valve regurgitation noted. TRICUSPID VALVE The tricuspid valve is normal in structure. There is mild tricuspid valve regurgitation noted. RVSP is calculated at 42 mm Hg. There is no tricuspid valve prolapse or vegetation. There is no tricuspid valve stenosis. PULMONIC VALVE The pulmonary valve is normal in structure. There is no pulmonic valvular regurgitation. There is no pulmonic valvular stenosis. GREAT VESSELS The aortic root is normal in size. The ascending aorta is normal in size. The pulmonary artery is normal. The IVC is normal in size and collapses >50% with inspiration. PERICARDIAL EFFUSION There is no pericardial effusion. There is no pleural effusion. <Conclusion> There is mild concentric left ventricular hypertrophy. The estimated ejection fraction is 55-60% Transmitral Doppler flow pattern is Grade I-abnormal relaxation pattern. The left atrium is moderately dilated. There is mild aortic valvular stenosis. Peak aortic velocity is measured at - 3 m/sec. There is mild tricuspid valve regurgitation noted. RVSP is calculated at 42 mm Hg.
--- NOTE | 2019-04-01 20:42 | CON ---
DATE: 04/01/2019 REASON FOR CONSULTATION: Syncope and shortness of breath. The history was obtained via a print color operator, who happens to be the nurse practitioner, Mary, in the presence of the patient's daughter who spoke in [place]. HISTORY OF PRESENT ILLNESS: The patient is a 78-year-old female, who has a history of diabetes mellitus and underwent cardiac catheterization twice in the past that did not reveal significant coronary artery disease. She was admitted because of a syncopal episode. According to the patient, she lives by herself. She was going to the bathroom. She felt weak, dizzy and collapsed to the floor, lost consciousness for an unknown period. When she woke up on the floor, she activated the emergency attendant. The grain elevator superintendent came and EMS was activated. Also, the daughter noticed that her mother was not answering the phone and she arrived at home at the time ambulance transportation came. The patient had urinary incontinence at that time, but denied any tongue biting. The patient fell twice in two similar episode scenarios in the past. The patient complains of mild chest pain and also shortness of breath. The patient denies any fever or chills. SOCIAL HISTORY: Nonsmoker. She lives by herself. Her daughter lives nearby. MEDICATIONS: Actos 30 mg once a day, Aricept 10 mg once a day, aspirin 81 mg once a day, Colace 100 mg twice a day, Elavil 50 mg every 12 hours, metformin 500 mg twice a day, glipizide 10 mg twice a day, Hyzaar 12.5 mg once a day, subcutaneous heparin 5000 units every 8 hours which was started by ia last night, Lasix 20 mg p.o. once a daily, Lipitor 40 mg once a day, Lopressor 50 mg once a day, Xanax 0.25 mg every 12 hours. PAST MEDICAL HISTORY: Hypertension and diabetes mellitus. PHYSICAL EXAMINATION: GENERAL: The patient is an elderly female who is currently tachypneic, but does not appear to be in respiratory distress or impending respiratory failure. VITAL SIGNS: Blood pressure 125/69, heart rate 72, temperature 98.9, respirations 20. HEENT: Pale conjunctivae. CHEST: Bibasal coarse crepitations. HEART: S1 and S2, regular and distant. ABDOMEN: Soft. EXTREMITIES: No edema. LABORATORY DATA: Admitting hemoglobin and hematocrit 9.7 and 31.4, white count and platelet count are within normal limits. Admitting SMA-7; sodium 139, potassium 4.4, chloride 101, CO2 of 28, glucose 174, BUN 31, creatinine 1.4. Troponins were 0.159 and 0.232. EKG revealed normal sinus rhythm. Chest x-ray revealed cardiomegaly with mild CHF. Head CT scan without contrast revealed no acute intracranial hemorrhage. Moderate chronic white matter ischemic changes. Ooifxdsk-nm-ggphbacyasj generalized volume loss. Head and neck CT angio, minor atherosclerotic plaque, both carotid bifurcations without significant stenosis. Moderate calcification. Moderate calcified atherosclerotic plaque, both carotid siphons. No evidence of occlusion or dissection. The most recent cardiac catheterization in 06/2017 revealed a nonobstructive CAD and normal left ventricular function. ASSESSMENT: 1. Syncopal episode, rule out seizure activity. 2. Congestive heart failure, consider acute diastolic heart failure. 3. Rule out pulmonary embolus. The patient's D-dimer was elevated at 368. 4. Uncontrolled diabetes mellitus. 5. Anemia. 6. Chronic renal insufficiency. RECOMMENDATIONS: Continue current aspirin 81 mg once a day, Elavil 50 mg b.i.d., subcutaneous heparin 5000 units every 8 hours, Hyzaar 12.5/50 mg daily, change Lasix to 40 mg intravenously daily. Continue Lipitor 40 mg once a day, Toprol XL 50 mg daily, Tricor at 145 mg once a day. Obtain ventilation perfusion scan. I will consult with Dr. Desir if he want to continue the cardiologic care on Mrs. Figueroa. Kenneth Louis MD
--- NOTE | 2019-04-01 23:28 | CON ---
DATE: 04/01/2019 Neurology consult called for Ms. Shawna Figueroa for syncope by Dr. Porter. HISTORY OF PRESENT ILLNESS: Ms. Figueroa is a 78-year-old woman, brought in by EMS for evaluation of syncopal episodes, which happened several times this month secondary to hypoglycemia. This time as well, the patient went to black pickler her mother from [employer] when she heard the mother screaming, and the patient had a witnessed syncopal episode with no urinary incontinence, no shaking. No focal tonic clonic seizure. The blood sugar was extremely low at the point of evaluation by EMS. She was admitted to the hospital. REVIEW OF SYSTEMS: Negative for any issues. PAST MEDICAL HISTORY: Anxiety, arthritis, asthma, depression, diabetes, hypertension, hypercholesterolemia. PAST SURGICAL HISTORY: Appendectomy, cholecystectomy. FAMILY HISTORY: Unknown. SOCIAL HISTORY: No tobacco. No alcohol. Lives alone. ALLERGIES: NO KNOWN DRUG ALLERGIES. MEDICATIONS: At home, the patient is on the following medications: Xanax, Lipitor, Lasix, Toprol, Elavil, aspirin, Colace, Aricept, Amaryl, Actos, Glucophage, Tylenol, Pepcid, Feosol, ibuprofen. PHYSICAL EXAMINATION: GENERAL: The patient is alert and oriented x3. HEENT: Pupils are equal, round, and reactive to light. NEUROLOGIC: Cranial nerves II through XII normal. Speech is fluent. Mini-mental status 30/30. She follows three-step commands. Motor 5/5 in upper and lower limbs bilaterally. Sensory is intact to fine touch, pin, position. Gait is normal. Reflexes are +1 in upper and lower limbs bilaterally. Gait has not been tested. LABORATORY DATA: Labs are as follows: Hemoglobin 9.7, hematocrit 31.4. BUN and creatinine [address] of the head and neck was done and shows minor atherosclerotic plaque with no stenosis. CAT scan of the head was done and shows diffuse atrophy. IMPRESSION: This is a 78-year-old woman with syncope secondary to metabolic issues. There is no new neurologic issue at this point or going forward. PLAN: Please re-consult p.r.n. if there is a neurologic issue involved. Thank you for this interesting consult. Meir Matthews MD [facility] # [id number]
--- NOTE | 2019-04-02 01:11 | PN ---
DATE: 04/01/2019 SUBJECTIVE: This is a 78-year-old female with history of multiple medical problems, who was brought to emergency room after she was found in the floor by her daughter. The patient was evaluated in emergency room, and she was found to have a fractional elevation of troponin. The patient denied any chest pain or palpitation. The patient is denied any history of falls before. The patient was admitted to telemetry floor for further management. ALLERGIES: POSITIVE FOR CORTISONE AND INSULIN. SOCIAL HISTORY: No history of smoking, EtOH, or substance abuse. MEDICATIONS: Reviewed as per MAR and ordered. FAMILY HISTORY: Not contributory. PAST MEDICAL HISTORY: As above. PHYSICAL EXAMINATION: GENERAL: The patient is in bed, not in any cardiopulmonary distress. VITAL SIGNS: Blood pressure 159/71, temperature 98.7, respiratory rate 20, and pulse 77. HEENT: Pupils equal, reactive to light. Normal-appearing mucosa of the conjunctivae, oropharynx, and nasal membrane mucosa. NECK: Supple. No JVD. No carotid bruit. No lymph node. No thyromegaly. CHEST AND LUNGS: Bilateral symmetrical expansion. Good air exchange. No rales. No rhonchi. CARDIOVASCULAR SYSTEM; PMI not localized. S1, S2. No additional sounds. ABDOMEN: Normoactive bowel sounds. No tenderness. No organomegaly. No masses. EXTREMITIES: No cyanosis, no clubbing, no edema. CENTRAL NERVOUS SYSTEM: Alert, awake, oriented x2, and moves all extremities equally. ASSESSMENT: 1. Possible syncope. 2. Bbi-LL-ejjctscwp myocardial infarction. 3. Type 2 diabetes mellitus. 4. Hypertension. 5. Anemia of chronic disease. 6. Chronic kidney disease, stage III. PLAN: Echocardiogram. Cardiology consult. We will start the patient on Lovenox and continue anti-hypercholesterolemia medications. Cardiology consult. We will do also a V/Q scan to rule out pulmonary embolism. Micheal Porter MD
[2019-04-02] MEDS: GlipiZIDE 10 mg SR Tab PO SCH ×2 (09:25→17:07)
[2019-04-02] MEDS: HCTZ/Losartan 12.5/50 Tab PO SCH (09:27)
[2019-04-02] MEDS: Metoprolol Succinate 50 mg XL Tab PO SCH (09:28)
--- NOTE | 2019-04-02 17:37 | PN ---
DATE: 04/02/2019 SUBJECTIVE: The patient is seen today, 04/02/2019. She is feeling overall better and less cardiopulmonary distress. OBJECTIVE: VITAL SIGNS: Blood pressure 147/65, temperature 99, respiratory rate 20 and pulse 73. HEENT: Pupils equal and reactive to light. Normal-appearing mucosa of the conjunctivae, oropharynx, and nasal membrane mucosa. NECK: Supple. No JVD. No carotid bruit. No lymph node. No thyromegaly. CHEST AND LUNGS: Bilateral symmetrical expansion. Good air exchange. No rales, no rhonchi. CARDIOVASCULAR: PMI not localized. S1, S2. No additional sounds. ABDOMEN: Normoactive bowel sounds. No tenderness. No organomegaly. No masses. EXTREMITIES: No cyanosis, no clubbing, no edema. CENTRAL NERVOUS SYSTEM: Alert, awake, oriented x2. No neurological deficit could be appreciated. ASSESSMENT: 1. Status post fall. 2. Non ST-elevation myocardial infarction. 3. Hypertension. 4. Type 2 diabetes mellitus. PLAN: Continue aspirin, beta blockers, subcutaneous heparin and atorvastatin. Discussed the patient's condition with Dr. Louis. The patient had cardiac catheterization x2 before. Continue physical therapy and plan to discharge to subacute rehabilitation. Micheal Porter MD
[2019-04-03 06:15] LABS: CALCIUM 8.7 mg/dL (8.4-10.2)
--- NOTE | 2019-04-03 08:55 | PN ---
DATE: 04/02/[address] Desir, the packer sausage and wiener, who told me that he was leaving yesterday and asked me to continue the care with Mrs. Shawna Figueroa. SUBJECTIVE: The patient denies any chest pain or dizziness. Her shortness of breath has improved. PHYSICAL EXAMINATION: VITAL SIGNS: Blood pressure 147/65, heart rate 73, temperature 99, respirations 20. HEENT: Normocephalic. CHEST: Bibasilar rhonchi. HEART: S1 and S2 regular. ABDOMEN: Soft. EXTREMITIES: No edema or calf tenderness. LABORATORY DATA: Ventilation/perfusion scan, low probability for pulmonary embolus. I did review neurology consult by Dr. Matthews and the impression is syncope secondary to metabolic issues. There is no neurological issue at this point. Echocardiograph study revealed mild concentric LVH with normal ejection fraction and grade I abnormal relaxation pattern, right ventricular systolic pressure calculated at 42 mmHg, mild aortic valvular stenosis. ASSESSMENT: 1. Syncopal episode. 2. Borderline troponin elevation. 3. Mild pulmonary hypertension. 4. Mild aortic stenosis. RECOMMENDATION: I did review the cardiac catheterization performed by Dr. Desir in 06/2017 which revealed insignificant distal left main disease and insignificant proximal to mid LAD narrowing. No other cardiac catheterization is justified at this time. Continue current TriCor 145 mg once a day, Toprol XL 50 mg daily, Lasix 40 mg intravenous daily, Lipitor 40 mg once a day, Hyzaar 12.5 mg/50 mg daily, subcutaneous Heparin 5000 units every 8 hours, and aspirin 81 mg once a day. You were requesting venous Doppler of lower extremity. The patient and her daughter at the bedside were instructed to follow with Dr. Desir as an outpatient after their discharge from rehab and to report any chest pain and call ambulance if the patient develops any chest pain. In the meantime, I did discuss with the daughter the fact that the patient lives by herself and she had multiple falls so far, however, the daughter states that she will take care of her mom in her own house. Case will be discussed with Dr. Porter. Kenneth Louis MD
[2019-04-03] MEDS: GlipiZIDE 10 mg SR Tab PO SCH ×2 (09:27→17:25)
[2019-04-03] MEDS: Metoprolol Succinate 50 mg XL Tab PO SCH (09:28)
[2019-04-03] MEDS: HCTZ/Losartan 12.5/50 Tab PO SCH (09:28)
--- NOTE | 2019-04-03 12:27 | US ---
Date of service: 04/02/2019 PROCEDURE: Bilateral lower extremity venous duplex Doppler. HISTORY: r/o dvt COMPARISON: None available. TECHNIQUE: Bilateral common femoral, superficial femoral, popliteal and posterior tibial veins were evaluated. Flow was assessed with color Doppler, compressibility, assessment of phasic flow and augmentation response. FINDINGS: COMMON FEMORAL VEIN: Right CFV: Unremarkable. Left CFV: Unremarkable. SUPERFICIAL FEMORAL VEIN: Right SFV: Unremarkable. Left SFV: Unremarkable. POPLITEAL VEIN: Right Popliteal: Unremarkable. Left Popliteal: Unremarkable. POSTERIOR TIBIAL VEIN: Right PTV: Unremarkable. Left PTV: Unremarkable. OTHER FINDINGS: None. IMPRESSION: No evidence of deep venous thrombosis. Concordant findings (preliminary report) provided by [facility].
--- NOTE | 2019-04-03 16:43 | PN ---
DATE: 04/03/2019 SUBJECTIVE: The patient denies any palpitation or dizziness and no chest pain and no reported ventricular arrhythmia. PHYSICAL EXAMINATION: VITAL SIGNS: Blood pressure 137/70, heart rate 77, temperature 97.9, respirations 18. HEENT: Normocephalic. CHEST: Clear. HEART: S1 and S2 regular. EXTREMITIES: Trace leg edema. LABORATORY DATA: Today's SMA-7: Sodium 136, potassium 4.7, chloride 94, CO2 of 36, glucose 148, BUN 41, creatinine 1.7. Magnesium is within normal limit at 1.9. Venous Doppler of lower extremity was performed, the report is still pending. ASSESSMENT: 1. Syncopal episode. 2. Borderline troponin elevation. 3. Mild aortic stenosis. 4. Mild pulmonary hypertension. 3. Chronic renal insufficiency. RECOMMENDATION: Continue aspirin 81 mg once a day, Glucotrol XL at 10 mg twice a day, Glucophage 500 mg twice a day, Hyzaar 12.5/50 mg daily, Lipitor at 20 mg once a day, Toprol-XL at 50 mg daily, TriCor 145 mg daily. Discontinue intravenous Lasix and follow up official report of venous Doppler of lower extremities. Kenneth Louis MD
--- NOTE | 2019-04-03 22:36 | PN ---
DATE: 04/03/2019 SUBJECTIVE: The patient is seen today, 04/03/2019. She has less cardiopulmonary distress. PHYSICAL EXAMINATION: VITAL SIGNS: Blood pressure 134/56, temperature 98.7, respiratory rate 20, and pulse 68. HEENT: Pupils equal, reactive to light. Normal-appearing mucosa of the conjunctivae, oropharynx, and nasal membrane mucosa. NECK: Supple. No JVD. No carotid bruit. No lymph node. No thyromegaly. CHEST AND LUNGS: Bilateral symmetrical expansion. Good air exchange. No rales, no rhonchi. CARDIOVASCULAR SYSTEM: PMI not localized. S1, S2. No additional sounds. ABDOMEN: Normoactive bowel sounds. No tenderness. No organomegaly. No masses. EXTREMITIES: No cyanosis, no clubbing, no edema. CENTRAL NERVOUS SYSTEM: Alert, awake, oriented x2. No neurological deficit could be appreciated. ASSESSMENT: 1. Non-ST elevation myocardial infarction. 2. Hypertension. 3. Type 2 diabetes mellitus. 4. Status post fall. 5. Chronic kidney disease. PLAN: Continue physical therapy and current medications and plan to discharge to subacute rehabilitation. Micheal Porter MD
[2019-04-04] MEDS: GlipiZIDE 10 mg SR Tab PO SCH ×2 (09:26→16:31)
[2019-04-04] MEDS: HCTZ/Losartan 12.5/50 Tab PO SCH (09:26)
[2019-04-04] MEDS: Metoprolol Succinate 50 mg XL Tab PO SCH (09:27)
--- NOTE | 2019-04-04 12:41 | RAD ---
Date of service: 04/04/2019 PROCEDURE: CHEST RADIOGRAPH, 1 VIEW HISTORY: sob COMPARISON: 03/31/2019. FINDINGS: LUNGS: The lungs are well inflated and clear. There is interval improved aeration in the lungs with residual mild pulmonary venous congestion. PLEURA: No pneumothorax or pleural effusion. CARDIOVASCULAR: There is moderate cardiomegaly. No aortic atherosclerotic calcifications present. OSSEOUS STRUCTURES: Within normal limits for the patient's age. VISUALIZED UPPER ABDOMEN: Normal. OTHER FINDINGS: None. IMPRESSION: No active pulmonary disease. Interval improved aeration in the lungs. Persistent moderate cardiomegaly and mild pulmonary venous congestion.
--- NOTE | 2019-04-04 16:07 | PN ---
DATE: 04/04/2019 SUBJECTIVE: The patient is still experiencing shortness of breath and extremely weak, unable to assist herself to sit on the chair. She denies any dizziness or chest pain. PHYSICAL EXAMINATION: VITAL SIGNS: Blood pressure 145/68, heart rate 74, temperature 98.1, respirations 18. HEENT: Pale conjunctivae. CHEST: Diminished breath sounds over the bases. HEART: S1 and S2 regular. ABDOMEN: Soft. EXTREMITIES: Trace leg edema. LABORATORY DATA: Today's blood sugar is 132. Official report of venous Doppler of lower extremity, no evidence of DVT. ASSESSMENT: 1. Status post syncopal episode. 2. Borderline troponin elevation. The patient's most recent cath in 06/2017 revealed insignificant distal left main disease as per my review. 3. Mild congestive heart failure. 4. Chronic renal insufficiency. 5. Uncontrolled diabetes mellitus. 6. Mild aortic stenosis and mild pulmonary hypertension. RECOMMENDATIONS: Continue aspirin 81 mg once a day, Elavil 5 mg every 12 hours, Glucophage 500 mg twice a day, subcutaneous heparin 5000 units every 8 hours, Hyzaar 12.5/50 mg daily, Lipitor at 40 mg once a day, Toprol XL 50 mg daily, TriCor 145 mg once a day. I would request a portable chest x-ray to be done today. Kenneth Louis MD
--- NOTE | 2019-04-05 00:55 | PN ---
DATE: 04/04/2019 SUBJECTIVE: The patient is seen today, on 04/04/2019. She is not in any cardiopulmonary distress. PHYSICAL EXAMINATION: VITAL SIGNS: Blood pressure 138/70, temperature 98.6, respiratory rate 17 and pulse 72. HEENT: Pupils are equal and reactive to light. Normal-appearing mucosa of the conjunctivae, oropharynx and nasal membrane mucosa. NECK: Supple. No JVD. No carotid bruit. No lymph node. No thyromegaly. CHEST AND LUNGS: Bilateral symmetrical expansion. Good air exchange. No rales. No rhonchi. CARDIOVASCULAR SYSTEM: PMI not localized. S1 and S2. No additional sounds. ABDOMEN: Normoactive bowel sounds. No tenderness, no organomegaly and no masses. EXTREMITIES: No cyanosis, no clubbing, and no edema. CENTRAL NERVOUS SYSTEM: Alert, awake, and oriented x2. No neurological deficit could be appreciated. ASSESSMENT: Status post fall, hypertension, type 2 diabetes mellitus, diabetic neuropathy, osteoarthritis, chronic kidney disease and [id number] myocardial infarction. PLAN: Continue current medications and physical therapy. Conservative medical management. The patient is for discharge to subacute rehabilitation. Micheal Porter MD
[2019-04-05 08:39] VITALS: PULSE 75; RESP 20
[2019-04-05] MEDS: GlipiZIDE 10 mg SR Tab PO SCH (08:47)
[2019-04-05] MEDS: Metoprolol Succinate 50 mg XL Tab PO SCH (08:48)
[2019-04-05] MEDS: HCTZ/Losartan 12.5/50 Tab PO SCH (09:50)
[2019-04-05 12:39] VITALS: BP 137/68; TEMP 98.8; O2SAT 96
--- NOTE | 2019-04-05 16:20 | PN ---
DATE: 04/05/2019 SUBJECTIVE: The patient's shortness of breath has improved. She denies any chest pain. The patient's daughter is at the bedside. No reported ventricular arrhythmia. PHYSICAL EXAMINATION: VITAL SIGNS: Blood pressure 137/68, heart rate 75, temperature 98.8, respirations 20. HEENT: Normocephalic. CHEST: Minimal basal rhonchi. HEART: S1 and S2, regular. EXTREMITIES: Trace leg edema. LABORATORY DATA: Today's blood sugars are 108 and 105 respectively. Yesterday's chest x-ray reports no active pulmonary disease. Interval improved aeration in the lungs. Persistent moderate cardiomegaly and mild pulmonary venous congestion. ASSESSMENT: 1. Syncopal episode. 2. Borderline troponin elevation. 3. Chronic renal insufficiency. 4. Diastolic heart failure. 5. Insignificant distal left main disease, on cardiac catheterization performed in 06/2017. 6. Uncontrolled diabetes mellitus. RECOMMENDATIONS: Continue current Actos 30 mg once a day, aspirin 81 mg once a day, Glucotrol XL 10 mg twice a day, subcutaneous heparin 5000 units every 8 hours, Lipitor at 40 mg once a day, Toprol XL 50 mg once a day, TriCor 145 mg once a day. The patient can be transferred to subacute rehab. The case was discussed with the patient's daughter at the bedside. The patient needs to be accompanied by someone 24 hours at home and the daughter stated that she would receive her mother in the daughter's house after subacute rehab discharge and will follow with Dr. Desir, the patient registration supervisor, upon her discharge from subacute rehab. Kenneth Louis MD
--- NOTE | 2019-04-08 08:23 | DS ---
REASON FOR ADMISSION: This is a 78-year-old female with history of multiple medical problems who was admitted to telemetry floor after a fall and found to have fractional elevation of troponin. COURSE OF HOSPITALIZATION: The patient was admitted to telemetry floor, and serial troponins were obtained. The patient had a cardiology consult by Dr. Louis. The patient's canal equipment mechanic is Dr. Desir who stated that the patient had a cardiac catheterization that did not show significant obstructing coronary artery disease. Decision was to treat the patient medically. The patient was started on physical therapy. The patient was started also on pre-admission medications. The patient did well. She was discharged to subacute rehabilitation at [facility] to continue her current medications. FINAL DIAGNOSES: 1. [id number] myocardial infarction. 2. Fall. 3. Type 2 diabetes mellitus. 4. Hypertension. 5. Osteoarthritis. 6. Peripheral neuropathy. [facility] MD [place]
== END 2019-04-05 15:32 | DRG 280 ==
LOC: H.ER 12:02 → H.ERHOLD 14:48 → H.TEL 17:12
PROVIDERS: ADMIT Internal Medicine; ATTEND Internal Medicine
DX: I21.4 Non-ST elevation (NSTEMI) myocardial infarction (principal); I50.31 Acute diastolic (congestive) heart failure; I13.0 Hypertensive heart and chronic kidney disease with heart failure and stage 1 through stage 4 chronic kidney disease, or unspecified chronic kidney disease; N18.3 Chronic kidney disease, stage 3 (moderate); E11.649 Type 2 diabetes mellitus with hypoglycemia without coma; I35.0 Nonrheumatic aortic (valve) stenosis; E11.22 Type 2 diabetes mellitus with diabetic chronic kidney disease; E11.40 Type 2 diabetes mellitus with diabetic neuropathy, unspecified; D63.8 Anemia in other chronic diseases classified elsewhere; I27.20 Pulmonary hypertension, unspecified; E11.65 Type 2 diabetes mellitus with hyperglycemia; J45.909 Unspecified asthma, uncomplicated; E78.00 Pure hypercholesterolemia, unspecified; M19.90 Unspecified osteoarthritis, unspecified site; Z91.81 History of falling; Z96.652 Presence of left artificial knee joint; F32.9 Major depressive disorder, single episode, unspecified; F41.9 Anxiety disorder, unspecified; Z79.84 Long term (current) use of oral hypoglycemic drugs; Z88.8 Allergy status to other drugs, medicaments and biological substances